=== PATIENT | female | born 1985 ===

== ENCOUNTER 2017-02-07 03:17 | Emergency (ER) | payer OTHER ==
[2017-02-07 03:28] VITALS: RESP 18; TEMP 97.9; O2SAT 100
[2017-02-07 03:29] VITALS: BMI 26.9
[2017-02-07] MEDS ORDERED: Sodium Chloride 0.9% 1,000 ML IV STA (04:05)
--- NOTE | 2017-02-07 04:11 | ED PDOC ---
Arrival/HPI - General Historian: Patient <Artie Greenberg - Last Filed: 02/07/17 04:26> <Salinas Bass - Last Filed: 02/07/17 06:16> - General Chief Complaint: GI Problem Time Seen by Provider: 02/07/17 03:57 - History of Present Illness Narrative History of Present Illness (Text): 02/07/17 04:07 32 y/o female, nkda, c/o waterry diarrhea s/p taking the antidepressant viibryd for the 1st time and developed diarrhea. Pt. stated that she had multiple diarrhea tonight after taking the viibryd for the 1st time, no antibiotic taken or any traveling for the past 4 weeks, stated that she feels tired, no bodyache or night sweat, no dizziness, no numbness or tingling, no headache, no rash, no urinary symptoms, no neck stiffness, no other medical or psychological complaints. (Artie Greenberg) Past Medical History - Provider Review Nursing Documentation Reviewed: Yes - Infectious Disease Hx of Infectious Diseases: None - Tetanus Immunization Tetanus Immunization: Unknown - Past Medical History Past Medical History: No Previous - Cardiac Hx Cardiac Disorders: No Hx Pacemaker: No - Pulmonary Hx Respiratory Disorders: No - Neurological Hx Neurological Disorder: No Hx Paralysis: No - HEENT Hx HEENT Disorder: No - Renal Hx Renal Disorder: No - Endocrine/Metabolic Hx Systemic Lupus Erythematosus: Yes - Hematological/Oncological Hx Blood Disorders: No - Integumentary Hx Dermatological Disorder: No - Musculoskeletal/Rheumatological Hx Musculoskeletal Disorders: No Other/Comment: CHRONIC PAIN - Gastrointestinal Hx Gastrointestinal Disorders: Yes Hx Gastroesophageal Reflux: Yes Other/Comment: HIATAL HERNIA - Genitourinary/Gynecological Other/Comment: endometriosis - Psychiatric Hx Anxiety: Yes Hx Substance Use: No - Past Surgical History Past Surgical History: No Previous - Surgical History Other/Comment: Ovarian cyst removal. Laparoscopy for endometriosis - Anesthesia Hx Anesthesia: Yes Hx Anesthesia Reactions: No Hx Malignant Hyperthermia: No - Suicidal Assessment Feels Threatened In Home Enviroment: No <Artie Greenberg - Last Filed: 02/07/17 04:26> Family/Social History - Physician Review Nursing Documentation Reviewed: Yes Family/Social History: Unknown Family HX Smoking Status: Never Smoked Hx Alcohol Use: Yes (SOCIAL) Hx Substance Use: No Hx Substance Use Treatment: No <Artie Greenberg - Last Filed: 02/07/17 04:26> Allergies/Home Meds <Artie Greenberg - Last Filed: 02/07/17 04:26> <Salinas Bass - Last Filed: 02/07/17 06:16> Allergies/Adverse Reactions: Allergies No Known Allergies Allergy (Verified 01/01/17 13:34) Home Medications: Home Meds Medication Instructions Recorded Confirmed Hydroxychloroquine Sulfate 200 mg PO DAILY 12/26/16 01/01/17 [Plaquenil] traMADol [Ultram] 50 mg PO DAILY 12/26/16 01/01/17 Review of Systems - Review of Systems Constitutional: Fatigue. absent: Fevers Eyes: absent: Vision Changes ENT: absent: Hearing Changes Respiratory: absent: Cough Cardiovascular: absent: Chest Pain Gastrointestinal: Diarrhea. absent: Abdominal Pain, Nausea, Vomiting Musculoskeletal: absent: Arthralgias, Back Pain, Neck Pain, Joint Swelling, Myalgias Skin: absent: Rash, Pruritis, Skin Lesions, Laceration, Abscess, Ulcer <Artie Greenberg - Last Filed: 02/07/17 04:26> Physical Exam Vital Signs Reviewed: Yes Temperature: Afebrile Blood Pressure: Normal Pulse: Regular Respiratory Rate: Normal Appearance: Positive for: Well-Appearing, Non-Toxic, Uncomfortable Pain Distress: None Mental Status: Positive for: Alert and Oriented X 3 - Systems Exam Head: Present: Atraumatic, Normocephalic Pupils: Present: PERRL Extroacular Muscles: Present: EOMI Conjunctiva: Present: Normal Mouth: Present: Moist Mucous Membranes Neck: Present: Normal Range of Motion Respiratory/Chest: Present: Clear to Auscultation, Good Air Exchange. No: Respiratory Distress, Accessory Muscle Use Cardiovascular: Present: Regular Rate and Rhythm, Normal S1, S2. No: Murmurs Abdomen: Present: Normal Bowel Sounds. No: Tenderness, Distention, Peritoneal Signs, Rebound, Guarding Back: Present: Normal Inspection Upper Extremity: Present: Normal Inspection. No: Cyanosis, Edema Lower Extremity: Present: Normal Inspection. No: Edema Neurological: Present: GCS=15, CN II-XII Intact, Speech Normal Skin: Present: Warm, Dry, Normal Color. No: Rashes Psychiatric: Present: Alert, Oriented x 3, Normal Insight, Normal Concentration <Artie Greenberg - Last Filed: 02/07/17 04:26> Vital Signs Temp Pulse Resp BP Pulse Ox 02/07/17 03:27 97.9 F 69 18 114/74 100 Medical Decision Making <Artie Greenberg - Last Filed: 02/07/17 04:26> <Salinas Bass - Last Filed: 02/07/17 06:16> ED Course and Treatment: 02/07/17 04:12 -labs/rapid flu -IVF/reglan -observe and reassess 02/07/17 04:27 -Case sign out to the ER attending Dr. Bass to follow up with the labs and reassess the patient for the dispo plan. (Artie Greenberg) 02/07/17 06:16 On re-evaluation, the patient feels better and is in no acute distress. Tolerating PO. I have discussed the results and plan with the patient, who expresses understanding. Patient in agreement with plan to discharged home. Patient is stable for discharge. Patient was instructed to follow up with physician/clinic in 1-2 days or return if symptoms worsen or new concerning symptoms arise. (Salinas Bass) - Lab Interpretations Lab Results: 02/07/17 04:27 02/07/17 04:27 Lab Results 02/07/17 04:27: WBC 8.1, RBC 4.06, Hgb 13.1, Hct 37.5, MCV 92.4, MCH 32.3, MCHC 34.9, RDW 13.3, Plt Count 326, MPV 9.5, Gran % 64.9, Lymph % (Auto) 28.4, [place] % (Auto) 4.9, Eos % (Auto) 1.7, Baso % (Auto) 0.1, Gran # 5.24, Lymph # 2.3, [place] # 0.4, Eos # 0.1, Baso # 0.01, Sodium 139, Potassium 3.8, Chloride 107, Carbon Dioxide 23, Anion Gap 13, BUN 11, Creatinine 0.6, Est GFR ( Amer) > 60, Est GFR (Non-Af Amer) > 60, Random Glucose 128 H, Calcium 9.0, Total Bilirubin 0.4, AST 37, ALT 55, Alkaline Phosphatase 74, Total Protein 7.6, Albumin 3.7, Globulin 3.8, Albumin/Globulin Ratio 1.0 L, Lipase 78, Influenza Typ A,B (EIA) Negative for flu a/b - Medication Orders Current Medication Orders: Discontinued Medications Sodium Chloride (Sodium Chloride 0.9%) 1,000 mls @ 999 mls/hr IV .Q1H1M STA Stop: 02/07/17 05:05 Last Admin: 02/07/17 04:38 Dose: 999 MLS/HR eMAR Start Stop Document 02/07/17 04:38 MR (Rec: 02/07/17 04:38 MR [id number]) Intravenous Solution Start Date 02/07/17 Start Time 04:38 End Date 02/07/17 End time 05:38 Total Infusion Time 60 Metoclopramide HCl (Reglan) 10 mg IVP STAT STA Stop: 02/07/17 04:06 Last Admin: 02/07/17 04:37 Dose: 10 MG IVP Administration Document 02/07/17 04:37 MR (Rec: 02/07/17 04:37 MR [id number]) Charges for Administration # of IVP Administrations 1 - PA / SIGNAL WORKER / Resident Statement YARELIS has reviewed & agrees with the documentation as recorded. <Artie Greenberg - Last Filed: 02/07/17 04:26> - PA / SIGNAL WORKER / Resident Statement YARELIS has reviewed & agrees with the documentation as recorded. YARELIS has examined the patient and agrees with the treatment plan. <Salinas Bass - Last Filed: 02/07/17 06:16> Disposition/Present on Arrival - Present on Arrival Any Indicators Present on Arrival: No History of DVT/PE: No History of Uncontrolled Diabetes: No Urinary Catheter: No History of Decub. Ulcer: No History Surgical Site Infection Following: None - Disposition Disposition Time: 04:26 <Artie Greenberg - Last Filed: 02/07/17 04:26> - Present on Arrival Any Indicators Present on Arrival: No - Disposition Have Diagnosis and Disposition been Completed?: Yes Disposition Time: 06:09 Patient Plan: Discharge <Salinas Bass - Last Filed: 02/07/17 06:16> - Disposition Diagnosis: Diarrhea, Medication side effect Disposition: HOME/ ROUTINE Patient Problems: Current Active Problems Problem Status Diagnosed Diarrhea Acute Medication side effect Acute Condition: GOOD Additional Instructions: Stop viibyrd meds just prescribed/drink plenty of liquids/follow up with your doctor this week
[2017-02-07 04:43] LABS: ADD MANUAL DIFF? NO
[2017-02-07 04:58] LABS: BASO # 0.01 K/mm3 (0.0-2.0); BASO % 0.1 % (0.0-3.0); EOS # 0.1 (0.0-0.7); EOS % 1.7 % (1.5-5.0); GRAN # 5.24 (1.4-6.5); GRAN % 64.9 % (50.0-68.0); HEMATOCRIT 37.5 % (36.0-48.0); LYMPH # 2.3 (1.2-3.4); LYMPH % 28.4 % (22.0-35.0); MEAN CELL VOLUME 92.4 fL (80.0-105.0); MEAN CORPUSCULAR HEMOGLOBIN 32.3 pg (25.0-35.0); MEAN CORPUSCULAR HGB CONC 34.9 g/dl (31.0-37.0); MEAN PLATELET VOLUME 9.5 fl (7.0-11.0); MONO # 0.4 (0.1-0.6); MONO % 4.9 % (1.0-6.0); PLATELET COUNT 326 10^3/uL (120.0-450.0); RED CELL DISTRIBUTION WIDTH 13.3 % (11.5-14.5); WHITE BLOOD COUNT 8.1 10^3/ul (4.5-11.0)
[2017-02-07 05:22] LABS: ALKALINE PHOSPHATASE 74 U/L (38-133); ALT/SGPT 55 U/L (7-56); AST/SGOT 37 U/L (15-39); BILIRUBIN,TOTAL 0.4 mg/dL (0.2-1.3); BLOOD UREA NITROGEN 11 mg/dL (7-21); CARBON DIOXIDE 23 mmol/L (21-33); CHLORIDE 107 mmol/L (98-107); GFR AFRICAN-AMERICAN > 60; GLUCOSE,RANDOM 128 mg/dL (70-110); LIPASE 78 U/L (23-300); POTASSIUM 3.8 mmol/L (3.6-5.0); SODIUM 139 mmol/L (132-148); TOTAL PROTEIN 7.6 g/dL (5.8-8.3)
[2017-02-07 07:00] VITALS: BP 117/70; PULSE 70
== END 2017-02-07 06:19 | disposition home or self-care (01) ==
LOC: ED 03:17
DX: R19.7 Diarrhea, unspecified (principal); T50.995A Adverse effect of other drugs, medicaments and biological substances, initial encounter; Y92.89 Other specified places as the place of occurrence of the external cause
CPT/HCPCS: 80053; 83690; 85025; 87804; 96361; 96374; 99284; J2765; J7040

== ENCOUNTER 2017-04-25 23:09 | Emergency (ER) | payer OTHER ==
[2017-04-25 23:12] VITALS: BMI 25.4
[2017-04-25 23:21] VITALS: BP 127/85; PULSE 92; RESP 18; TEMP 98.1; O2SAT 100
--- NOTE | 2017-04-25 23:50 | ED PDOC ---
Arrival/HPI - General Historian: Patient - History of Present Illness Time/Duration: < week Symptom Onset: Gradual Symptom Course: Unchanged Context: Home - General Chief Complaint: ENT Problem Time Seen by Provider: 04/25/17 23:18 - History of Present Illness Narrative History of Present Illness (Text): 04/25/17 23:47 32 yo female with PMH of SLE and endometrosis presents to ED with sore throat. Per patient sore throat started on Saturday. She states that it is painful to swallow. She was not able to see her PMD ad decided to come to the ED. She also reports body aches and nasal congestion, she denies fevers, chills, sob, chest pain. Patient is currently not on any medication for SLE. PMD: Dr. Campbell ([facility]) Past Medical History - Provider Review Nursing Documentation Reviewed: Yes - Infectious Disease Hx of Infectious Diseases: None - Tetanus Immunization Tetanus Immunization: Unknown - Past Medical History Past Medical History: No Previous - Cardiac Hx Cardiac Disorders: No Hx Pacemaker: No - Pulmonary Hx Respiratory Disorders: No - Neurological Hx Neurological Disorder: No Hx Paralysis: No - HEENT Hx HEENT Disorder: No - Renal Hx Renal Disorder: No - Endocrine/Metabolic Hx Systemic Lupus Erythematosus: Yes - Hematological/Oncological Hx Blood Disorders: No - Integumentary Hx Dermatological Disorder: No - Musculoskeletal/Rheumatological Hx Musculoskeletal Disorders: No Other/Comment: CHRONIC PAIN - Gastrointestinal Hx Gastrointestinal Disorders: Yes Hx Gastroesophageal Reflux: Yes Other/Comment: HIATAL HERNIA - Genitourinary/Gynecological Other/Comment: endometriosis - Psychiatric Hx Anxiety: Yes Hx Substance Use: No - Past Surgical History Past Surgical History: No Previous - Surgical History Other/Comment: Ovarian cyst removal. Laparoscopy for endometriosis - Anesthesia Hx Anesthesia: Yes Hx Anesthesia Reactions: No Hx Malignant Hyperthermia: No - Suicidal Assessment Feels Threatened In Home Enviroment: No Family/Social History - Physician Review Nursing Documentation Reviewed: Yes Family/Social History: Hypertension (father) Smoking Status: Never Smoked Hx Alcohol Use: Yes (SOCIAL) Hx Substance Use: No Hx Substance Use Treatment: No Allergies/Home Meds Allergies/Adverse Reactions: Allergies No Known Allergies Allergy (Verified 01/01/17 13:34) Home Medications: Home Meds Medication Instructions Recorded Confirmed Hydroxychloroquine Sulfate 200 mg PO DAILY 12/26/16 01/01/17 [Plaquenil] traMADol [Ultram] 50 mg PO DAILY 12/26/16 01/01/17 Review of Systems - Review of Systems Constitutional: Fatigue. absent: Fevers Eyes: Normal. absent: Vision Changes ENT: Sore Throat, Sinus Congestion Respiratory: Normal. absent: SOB, Cough, Wheezing Cardiovascular: Normal. absent: Chest Pain, Palpitations, Edema, Syncope Gastrointestinal: Normal. absent: Abdominal Pain, Constipation, Diarrhea, Nausea, Vomiting Genitourinary Female: Normal. absent: Dysuria, Frequency, Hematuria Musculoskeletal: Arthralgias, Myalgias Skin: Normal. absent: Rash, Pruritis, Laceration, Ulcer Neurological: Normal. absent: Headache, Dizziness Endocrine: Normal. absent: Polyuria, Polydipsia Hemo/Lymphatic: Normal. absent: Easy Bleeding, Easy Bruising Psychiatric: Normal Physical Exam - Systems Exam Head: Present: Atraumatic, Normocephalic Pupils: Present: PERRL. No: Non-Reactive, Pinpoint Extroacular Muscles: Present: EOMI Conjunctiva: Present: Normal Ears: Present: Normal, NORMAL TM. No: Erythema, TM Bulging Mouth: Present: Moist Mucous Membranes, Normal Tounge, Normal Teeth Pharnyx: Present: Normal, Other (no edema of mouth floor). No: ERYTHEMA, EXUDATE, TONSILS ENLARGED, Peritonsilar Swelling, Uvular Deviation, Muffled/ Hoarse Voice, Soft Palate/Uvular Edema Neck: Present: Normal Range of Motion Respiratory/Chest: Present: Clear to Auscultation, Good Air Exchange. No: Respiratory Distress, Accessory Muscle Use, Wheezes, Rales, Rhonchi, Tachypneic Cardiovascular: Present: Regular Rate and Rhythm, Normal S1, S2. No: Murmurs, Tachycardic, Bradycardic Abdomen: Present: Normal Bowel Sounds. No: Tenderness, Distention, Peritoneal Signs Back: Present: Normal Inspection Upper Extremity: Present: Normal Inspection. No: Cyanosis, Edema, Tenderness, Swelling Lower Extremity: Present: Normal Inspection. No: Edema, CALF TENDERNESS Neurological: Present: GCS=15, CN II-XII Intact, Speech Normal Skin: Present: Warm, Dry, Normal Color. No: Rashes, Diaphoretic Psychiatric: Present: Alert, Oriented x 3, Normal Insight, Normal Concentration Medical Decision Making ED Course and Treatment: 04/25/17 23:55 Impression: 32 yo female with PMH of SLE and endometrosis presents to ED with sore throat. differential diagnoses includes but not limited to: - pharyngitis Plan: - amoxicillin 04/26/17 00:18 -Patient given 1 dose of amoxicillin. She is to follow up with her PMD in 1-2 days. She is to return to ED if symptoms worsen. (Ela Aguero) Patient seen and examined with resident. Came up with treatment and disposition plan with resident. (Nato Clark) - Medication Orders Current Medication Orders: Discontinued Medications Amoxicillin (Amoxil 500 Mg Cap) 500 mg PO STAT STA PRN Reason: Protocol Stop: 04/25/17 23:46 Disposition/Present on Arrival - Present on Arrival Any Indicators Present on Arrival: No History of DVT/PE: No History of Uncontrolled Diabetes: No Urinary Catheter: No History of Decub. Ulcer: No History Surgical Site Infection Following: None - Disposition Have Diagnosis and Disposition been Completed?: Yes Disposition Time: 11:55 Patient Plan: Discharge - Disposition Diagnosis: Pharyngitis Disposition: HOME/ ROUTINE Condition: FAIR Discharge Instructions (ExitCare): Pharyngitis (ED) Additional Instructions: Misti Wilson, thank you for letting us take care of you today. Your provider was Dr. Aguero and Dr. Clark. You were treated for pharyngitis. The emergency medical care you received today was directed at your acute symptoms. If you were prescribed any medication, please fill it and take as directed. It may take several days for your symptoms to resolve. Return to the Emergency Department if your symptoms worsen, do not improve, or if you have any other problems. Please contact your doctor or call one of the physicians/clinics you have been referred to that are listed on the Patient Visit Information form that is included in your discharge packet. Bring any paperwork you were given at discharge with you along with any medications you are taking to your follow up visit. Our treatment cannot replace ongoing medical care by a primary care provider (PCP) outside of the emergency department. Thank you for allowing the [facility] team to be part of your care today. Prescriptions: Amoxicillin 500 mg PO BID #19 tablet Referrals: Augie Campbell MD [Staff Provider] - Follow up with primary
== END 2017-04-26 00:30 | disposition home or self-care (01) ==
LOC: ED 23:09
DX: J02.9 Acute pharyngitis, unspecified (principal)

== ENCOUNTER 2017-05-23 20:24 | Emergency (ER) | payer OTHER ==
[2017-05-23 20:34] VITALS: PULSE 76; RESP 18; TEMP 98; O2SAT 99; BMI 27.3
--- NOTE | 2017-05-23 20:47 | ED PDOC ---
Arrival/HPI - General Chief Complaint: Dizziness/Lightheaded Time Seen by Provider: 05/23/17 20:26 Historian: Patient - History of Present Illness Narrative History of Present Illness (Text): 05/23/17 20:44 A 32 year old female, whose past medical history includes Lupus and endometriosis, presents to the emergency department complaining of dizziness for the past 3 days. Patient states her symptom has been constant today with no relieving or exacerbating factors. Patient notes a headache but denies any fever , chills, nausea, vomiting, diarrhea, abdominal pain, chest pain, shortness of breath, cough, nasal congestion, numbness/weakness or any other complaints. Patient had a MRI yesterday which showed negative results. Time/Duration: Other (3 days) Symptom Course: Unchanged, Other (Constant since today) Quality: Other Context: Home Past Medical History - Provider Review Nursing Documentation Reviewed: Yes - Infectious Disease Hx of Infectious Diseases: None - Tetanus Immunization Tetanus Immunization: Unknown - Past Medical History Past Medical History: No Previous - Cardiac Hx Cardiac Disorders: No Hx Pacemaker: No - Pulmonary Hx Respiratory Disorders: No - Neurological Hx Neurological Disorder: No Hx Paralysis: No - HEENT Hx HEENT Disorder: No - Renal Hx Renal Disorder: No - Endocrine/Metabolic Hx Systemic Lupus Erythematosus: Yes - Hematological/Oncological Hx Blood Disorders: Yes Other/Comment: elevated levels of prolactin - Integumentary Hx Dermatological Disorder: No - Musculoskeletal/Rheumatological Hx Musculoskeletal Disorders: No Other/Comment: CHRONIC PAIN - Gastrointestinal Hx Gastrointestinal Disorders: Yes Hx Gastroesophageal Reflux: Yes Other/Comment: HIATAL HERNIA - Genitourinary/Gynecological Hx Genitourinary Disorders: Yes Other/Comment: endometriosis - Psychiatric Hx Anxiety: Yes Hx Substance Use: No - Past Surgical History Past Surgical History: No Previous - Surgical History Other/Comment: Ovarian cyst removal. Laparoscopy for endometriosis - Anesthesia Hx Anesthesia: Yes Hx Anesthesia Reactions: No Hx Malignant Hyperthermia: No - Suicidal Assessment Feels Threatened In Home Enviroment: No Family/Social History - Physician Review Nursing Documentation Reviewed: Yes Family/Social History: No Known Family HX Smoking Status: Never Smoked Hx Alcohol Use: Yes (SOCIAL) Hx Substance Use: No Hx Substance Use Treatment: No Allergies/Home Meds Allergies/Adverse Reactions: Allergies No Known Allergies Allergy (Verified 05/23/17 20:34) Home Medications: Home Meds Medication Instructions Recorded Confirmed Cholecalciferol [Vitamin D 1000 IU] 1 tab PO QWK 05/23/17 05/23/17 Cyanocobalamin [Vitamin B12 1000 1 unit SC ONCE 05/23/17 05/23/17 mcg/ml Inj] Hydroxychloroquine Sulfate 1 tab PO DAILY 05/23/17 05/23/17 [Plaquenil] Review of Systems - Physician Review All systems were reviewed & negative as marked: Yes - Review of Systems Constitutional: absent: Fevers, Night Sweats ENT: absent: Sinus Congestion Respiratory: absent: SOB, Cough Cardiovascular: absent: Chest Pain Gastrointestinal: absent: Abdominal Pain, Diarrhea, Nausea, Vomiting Neurological: Headache, Dizziness. absent: Focal Weakness Physical Exam Vital Signs Reviewed: Yes Vital Signs Temp Pulse Resp BP Pulse Ox 05/23/17 20:54 76 136/88 05/23/17 20:33 98.0 F 76 18 146/100 H 99 Temperature: Afebrile Blood Pressure: Hypertensive Pulse: Regular Respiratory Rate: Normal Appearance: Positive for: Well-Appearing, Non-Toxic, Comfortable Pain Distress: None Mental Status: Positive for: Alert and Oriented X 3 - Systems Exam Head: Present: Atraumatic, Normocephalic Pupils: Present: PERRL Extroacular Muscles: Present: EOMI Conjunctiva: Present: Normal Ears: Present: Normal, NORMAL TM Mouth: Present: Moist Mucous Membranes Pharnyx: Present: Normal, ERYTHEMA Neck: Present: Normal Range of Motion Respiratory/Chest: Present: Clear to Auscultation, Good Air Exchange. No: Respiratory Distress, Accessory Muscle Use Cardiovascular: Present: Regular Rate and Rhythm, Normal S1, S2. No: Murmurs Abdomen: Present: Normal Bowel Sounds. No: Tenderness, Distention, Peritoneal Signs Back: Present: Normal Inspection Upper Extremity: Present: Normal Inspection, NORMAL PULSES. No: Cyanosis, Edema Lower Extremity: Present: Normal Inspection, NORMAL PULSES. No: Edema, CALF TENDERNESS Neurological: Present: GCS=15, CN II-XII Intact, Speech Normal, Motor Func Grossly Intact, Normal Sensory Function, Normal Cerebellar Funct, Gait Normal, Normal 2Pt Descrimination Skin: Present: Warm, Dry, Normal Color. No: Rashes Psychiatric: Present: Alert, Oriented x 3, Normal Insight, Normal Concentration Medical Decision Making ED Course and Treatment: 05/23/17 20:44 Impression: A 32 year old female with dizziness and a headache Differential Diagnosis included but are not limited to: Benign positional vertigo vs. Arrhythmia vs. Anemia Plan: -- EKG -- Labs -- Meclizine -- Reassess and disposition Progress Notes: 05/23/17 21:42 EKG shows NSR at [address]-segment elevations, normal intervals, normal intervals. Interpreted by me. 05/23/17 22:16 Accession No. : [id number] Patient Name / ID : CHRIS CALI / [id number] Exam Date : 05/22/2017 08:05:53 ( Approved ) Study Comment : Sex / Age : F / 32Y Creator : Paulino Weaver MD PROCEDURE: MRI BRAIN AND PITUITARY WITH AND WITHOUT CONTRAST IMPRESSION: Unremarkable pre and post MRI of the pituitary gland. No adenoma seen. Patient feels better. Orthostatics normal. Neuro exam normal. Walking without ataxia. MRI reviewed from yesterday and normal. She will f/u with Dr. Campbell in 1 -2days. - Lab Interpretations Lab Results: 05/23/17 21:23 05/23/17 21:23 Lab Results 05/23/17 21:23: Sodium 139, Potassium 3.8, Chloride 103, Carbon Dioxide 25, Anion Gap 15, BUN 14, Creatinine 0.6, Est GFR ( Amer) > 60, Est GFR (Non- Af Amer) > 60, Random Glucose 98, Calcium 9.6, Magnesium 2.2 05/23/17 21:23: WBC 8.5 D, RBC 4.25, Hgb 14.2, Hct 38.7, MCV 91.1, MCH 33.4, MCHC 36.7, RDW 13.1, Plt Count 322, MPV 9.3, Gran % 57.0, Lymph % (Auto) 34.2, [place] % (Auto) 6.7 H, Eos % (Auto) 1.9, Baso % (Auto) 0.2, Gran # 4.83, Lymph # 2.9, [place] # 0.6, Eos # 0.2, Baso # 0.02 I have reviewed the lab results: Yes Interpretation: All labs normal - Medication Orders Current Medication Orders: Discontinued Medications Meclizine HCl (Antivert) 25 mg PO STAT STA Stop: 05/23/17 20:49 Last Admin: 05/23/17 21:14 Dose: 25 mg - Scribe Statement The provider has reviewed the documentation as recorded by the Camila Juares Provider Alexandriaibe Attestation: All medical record entries made by the Scribe were at my direction and personally dictated by me. I have reviewed the chart and agree that the record accurately reflects my personal performance of the history, physical exam, medical decision making, and the department course for this patient. I have also personally directed, reviewed, and agree with the discharge instructions and disposition. Disposition/Present on Arrival - Present on Arrival Any Indicators Present on Arrival: No History of DVT/PE: No History of Uncontrolled Diabetes: No Urinary Catheter: No History of Decub. Ulcer: No History Surgical Site Infection Following: None - Disposition Have Diagnosis and Disposition been Completed?: Yes Diagnosis: Dizziness Disposition: HOME/ ROUTINE Disposition Time: 22:18 Patient Plan: Discharge, Observation Patient Problems: Current Active Problems Problem Status Onset Dizziness Acute Condition: IMPROVED Discharge Instructions (ExitCare): Dizziness (ED) Additional Instructions: Ms Wilson, thank you for letting us take care of you today. Your provider was Dr. Loyd. You were treated for Dizziness. The emergency medical care you received today was directed at your acute symptoms. If you were prescribed any medication, please fill it and take as directed. It may take several days for your symptoms to resolve. Return to the Emergency Department if your symptoms worsen, do not improve, or if you have any other problems. Please contact your doctor or call one of the physicians/clinics you have been referred to that are listed on the Patient Visit Information form that is included in your discharge packet. Bring any paperwork you were given at discharge with you along with any medications you are taking to your follow up visit. Our treatment cannot replace ongoing medical care by a primary care provider (PCP) outside of the emergency department. Thank you for allowing the [facility] team to be part of your care today. If you had an X-Ray or CT scan: A Radiologist will review the ED reading if any change in treatment is needed we will contact you. If you had a blood, urine, or wound culture: It will take several days for the results, if any change in treatment is needed we will contact you. If you had an STI test: It will take 48 hours for the results. Please call after 1 week if you have not heard back. Prescriptions: Meclizine [Meclizine*] 25 mg PO Q8 PRN #15 tab PRN Reason: Dizziness Referrals: Augie Campbell MD [Primary Care Provider] - Follow up with primary Forms: [employer] (Ecuadorean)
[2017-05-23 20:55] VITALS: BP 136/88
[2017-05-23 21:40] LABS: BLOOD UREA NITROGEN 14 mg/dL (7-21); CALCIUM 9.6 mg/dL (8.4-10.5); GFR AFRICAN-AMERICAN > 60; GFR NON-AFRICAN AMERICAN > 60; MAGNESIUM 2.2 mg/dL (1.7-2.2)
[2017-05-23 21:43] LABS: BASO # 0.02 K/mm3 (0.0-2.0); BASO % 0.2 % (0.0-3.0); EOS # 0.2 (0.0-0.7); EOS % 1.9 % (1.5-5.0); GRAN # 4.83 (1.4-6.5); HEMOGLOBIN 14.2 gm/dL (12.0-16.0); LYMPH # 2.9 (1.2-3.4); LYMPH % 34.2 % (22.0-35.0); MEAN CELL VOLUME 91.1 fL (80.0-105.0); MEAN CORPUSCULAR HEMOGLOBIN 33.4 pg (25.0-35.0); MEAN CORPUSCULAR HGB CONC 36.7 g/dl (31.0-37.0); MEAN PLATELET VOLUME 9.3 fl (7.0-11.0); MONO # 0.6 (0.1-0.6); MONO % 6.7 % (1.0-6.0); PLATELET COUNT 322 10^3/uL (120.0-450.0); RBC 4.25 10^6/uL (3.5-6.1); RED CELL DISTRIBUTION WIDTH 13.1 % (11.5-14.5); WHITE BLOOD COUNT 8.5 10^3/ul (4.5-11.0)
--- NOTE | 2017-05-24 16:15 | CARD ---
APPROVED REPORT EKG Measurement Heart [id number] <Conclusion> Normal sinus rhythm Normal ECG
== END 2017-05-23 22:21 | disposition home or self-care (01) ==
LOC: ED 20:24
DX: R42 Dizziness and giddiness (principal)

== ENCOUNTER 2017-07-24 13:03 | Emergency (ER) | payer OTHER ==
[2017-07-24 13:04] VITALS: BMI 27.3
[2017-07-24 13:16] VITALS: BP 119/77; PULSE 80; RESP 16; TEMP 98.5; O2SAT 98
--- NOTE | 2017-07-24 13:29 | ED PDOC ---
Arrival/HPI - General Historian: Patient - History of Present Illness Time/Duration: Prior to Arrival Context: Home - General Chief Complaint: Lower Extremity Problem/Injury Time Seen by Provider: 07/24/17 13:25 - History of Present Illness Narrative History of Present Illness (Text): 07/24/17 13:26 This 32 yo female presents to this ED c/o right 5th toe injury x [employer]. Patient stated while pushing a shopping cart a a local store, and large food can fell over her toe. Denies other complains. (Anny Ribeiro) Past Medical History - Provider Review Nursing Documentation Reviewed: Yes - Infectious Disease Hx of Infectious Diseases: None - Tetanus Immunization Tetanus Immunization: Unknown - Past Medical History Past Medical History: No Previous - Cardiac Hx Cardiac Disorders: No Hx Pacemaker: No - Pulmonary Hx Respiratory Disorders: No - Neurological Hx Neurological Disorder: No Hx Paralysis: No - HEENT Hx HEENT Disorder: No - Renal Hx Renal Disorder: No - Endocrine/Metabolic Hx Endocrine Disorders: Yes Hx Systemic Lupus Erythematosus: Yes - Hematological/Oncological Hx Blood Disorders: Yes Other/Comment: elevated levels of prolactin - Integumentary Hx Dermatological Disorder: No - Musculoskeletal/Rheumatological Hx Musculoskeletal Disorders: No Other/Comment: CHRONIC PAIN - Gastrointestinal Hx Gastrointestinal Disorders: Yes Hx Gastroesophageal Reflux: Yes Other/Comment: HIATAL HERNIA - Genitourinary/Gynecological Hx Genitourinary Disorders: Yes Other/Comment: endometriosis - Psychiatric Hx Anxiety: Yes Hx Substance Use: No - Past Surgical History Past Surgical History: No Previous - Surgical History Other/Comment: Ovarian cyst removal. Laparoscopy for endometriosis - Anesthesia Hx Anesthesia: Yes Hx Anesthesia Reactions: No Hx Malignant Hyperthermia: No - Suicidal Assessment Feels Threatened In Home Enviroment: No Family/Social History - Physician Review Nursing Documentation Reviewed: Yes Family/Social History: Other (non-contributory) Smoking Status: Never Smoked Hx Alcohol Use: Yes (SOCIAL) Frequency of alcohol use: Socially Hx Substance Use: No Hx Substance Use Treatment: No Allergies/Home Meds Allergies/Adverse Reactions: Allergies No Known Allergies Allergy (Verified 05/23/17 20:34) Home Medications: Home Meds Medication Instructions Recorded Confirmed l-Norgest/E.estradiol-E.estrad 1 tab PO DAILY 07/24/17 07/24/17 [Seasonique 0.15-0.03-0.01 Tab] Review of Systems - Physician Review All systems were reviewed & negative as marked: Yes - Review of Systems Constitutional: Normal. absent: Fatigue, Weight Change, Fevers Eyes: Normal ENT: Normal Respiratory: Normal. absent: SOB, Cough Cardiovascular: Normal. absent: Chest Pain, Palpitations Gastrointestinal: Normal. absent: Abdominal Pain, Nausea, Vomiting Genitourinary Female: Normal Musculoskeletal: Normal Skin: Normal. absent: Rash Neurological: Normal. absent: Headache, Dizziness, Focal Weakness Endocrine: Normal Hemo/Lymphatic: Normal Psychiatric: Normal Physical Exam Temperature: Afebrile Blood Pressure: Normal Pulse: Regular Respiratory Rate: Normal Appearance: Positive for: Well-Appearing, Non-Toxic, Comfortable Pain Distress: None Mental Status: Positive for: Alert and Oriented X 3 - Systems Exam Head: Present: Atraumatic, Normocephalic Pupils: Present: PERRL Extroacular Muscles: Present: EOMI Conjunctiva: Present: Normal Mouth: Present: Moist Mucous Membranes Neck: Present: Normal Range of Motion Back: Present: Normal Inspection Upper Extremity: Present: Normal Inspection, Normal ROM, NORMAL PULSES, Neurovascularly Intact, Capillary Refill < 2s. No: Cyanosis, Edema Lower Extremity: Present: Normal Inspection, NORMAL PULSES, Tenderness (mild tenderness over right 5th MPJ area, with trace ecchymosis changes), Neurovascularly Intact, Capillary Refill < 2 s. No: Edema, CALF TENDERNESS, Swelling, Erythema, Deformity, Temperature Abnormalties Neurological: Present: GCS=15, CN II-XII Intact, Speech Normal, Motor Func Grossly Intact, Normal Sensory Function, Normal Cerebellar Funct, Gait Normal, Memory Normal Skin: Present: Warm, Dry, Normal Color. No: Rashes Psychiatric: Present: Alert, Oriented x 3, Normal Insight, Normal Concentration Vital Signs Temp Pulse Resp BP Pulse Ox 07/24/17 13:13 98.5 F 80 16 119/77 98 Medical Decision Making Re-evaluation Time: 13:52 Reassessment Condition: Re-examined, Improved ED Course and Treatment: I was available for consultation during PA evaluation. The chart was reviewed by me, and I agree with disposition. The documented history was done by the physician network security consultant. The documented physical exam was done by the physician network security consultant. The documented procedures were done by the physician network security consultant. ( Nato Clark) 07/24/17 13:26 Patient refused pain medication as this time 07/24/17 13:52 Foot x-rays: No fracture or dislocation 07/24/17 13:52 Re-evaluation. Patient feels better. Discussed results and plan with patient who expresses understanding. All questions answered and there is agreement with the plan to discharge home with instructions. Patient stable for discharge. Return if symptoms persist or worsen Post Op shoe applied by packaging tech (RibeiroRiriulises P) - RAD Interpretation Radiology Orders: 07/24/17 13:25 FOOT RIGHT 5TH DIGIT (TOE) [RAD] Stat Disposition/Present on Arrival - Present on Arrival Any Indicators Present on Arrival: No History of DVT/PE: No History of Uncontrolled Diabetes: No Urinary Catheter: No History of Decub. Ulcer: No History Surgical Site Infection Following: None - Disposition Have Diagnosis and Disposition been Completed?: Yes Disposition Time: 13:53 Patient Plan: Discharge - Disposition Diagnosis: Foot contusion Disposition: HOME/ ROUTINE Condition: GOOD Discharge Instructions (ExitCare): Foot Contusion (ED) Additional Instructions: over the counter Motrin for pain as needed with food. medication as instructed. Return to emergency if symptoms worsen. Referrals: Augie Campbell MD [Primary Care Provider] - Follow up with primary Forms: [facility] (Norwegian), WORK NOTE
--- NOTE | 2017-07-24 16:11 | RAD ---
PROCEDURE: HISTORY: toe pain COMPARISON: None TECHNIQUE: Three the FINDINGS: 3 mm os tibial externum borders posteromedial navicular bone -developmental variant. . No fracture or dislocation. Unremarkable joints. Minimal soft tissue swelling near base of 5th metatarsal. IMPRESSION: No fracture seen
== END 2017-07-24 14:02 | disposition home or self-care (01) ==
LOC: ED 13:03
DX: S90.121A Contusion of right lesser toe(s) without damage to nail, initial encounter (principal); W20.8XXA Other cause of strike by thrown, projected or falling object, initial encounter; M32.9 Systemic lupus erythematosus, unspecified

== ENCOUNTER 2017-12-05 05:54 | Emergency (ER) | payer BC, OTHER ==
[2017-12-05 05:55] VITALS: BMI 27.3
[2017-12-05] MEDS ORDERED: Morphine 4 mg/ml ISec IVP STA (06:24)
--- NOTE | 2017-12-05 06:24 | ED PDOC ---
Arrival/HPI <Brandan Trujillo - Last Filed: 12/05/17 10:19> - General Historian: Patient - History of Present Illness Symptom Onset: Gradual Symptom Course: Unchanged Activities at Onset: Light Context: Work <John Xie - Last Filed: 12/06/17 17:36> - General Chief Complaint: Abdominal Pain Time Seen by Provider: 12/05/17 06:08 - History of Present Illness Narrative History of Present Illness (Text): 12/05/17 06:23 Misti Wilson is a 32 year old female, whose past medical history includes endometriosis, who presents to the emergency department complaining of abdominal pain. Patient states she has been experiencing worsening RLQ pain radiating to her mid abdomen and back for the past few hours. Patient notes she has experienced similar symptoms in the past, but notes pain is worse in severity. Patient denies any fevers, chills, chest pain, shortness of breath, nausea, vomiting, diarrhea, neck pain, headache, dizziness, or any other complaint. (John Xie) Past Medical History - Provider Review Nursing Documentation Reviewed: Yes - Infectious Disease Hx of Infectious Diseases: None - Tetanus Immunization Tetanus Immunization: Unknown - Past Medical History Past Medical History: No Previous - Cardiac Hx Cardiac Disorders: No Hx Pacemaker: No - Pulmonary Hx Respiratory Disorders: No - Neurological Hx Neurological Disorder: No Hx Paralysis: No - HEENT Hx HEENT Disorder: No - Renal Hx Renal Disorder: No - Endocrine/Metabolic Hx Endocrine Disorders: Yes Hx Systemic Lupus Erythematosus: Yes - Hematological/Oncological Hx Blood Transfusions: No - Integumentary Hx Dermatological Disorder: No - Musculoskeletal/Rheumatological Hx Musculoskeletal Disorders: No - Gastrointestinal Hx Gastrointestinal Disorders: Yes Hx Gastroesophageal Reflux: Yes Other/Comment: HIATAL HERNIA - Genitourinary/Gynecological Hx Genitourinary Disorders: Yes Other/Comment: endometriosis - Psychiatric Hx Psychophysiologic Disorder: No Hx Emotional Abuse: No Hx Physical Abuse: No Hx Substance Use: No - Past Surgical History Past Surgical History: No Previous - Surgical History Other/Comment: abd cyst/laproscopy - Anesthesia Hx Anesthesia Reactions: No - Suicidal Assessment Feels Threatened In Home Enviroment: No <John Xie - Last Filed: 12/06/17 17:36> Family/Social History - Physician Review Nursing Documentation Reviewed: Yes Family/Social History: Unknown Family HX Smoking Status: Never Smoked Hx Alcohol Use: Yes (SOCIAL) Frequency of alcohol use: Socially Hx Substance Use: No Hx Substance Use Treatment: No <John Xie - Last Filed: 12/06/17 17:36> Allergies/Home Meds <Brandan Trujillo - Last Filed: 12/05/17 10:19> <John Xie - Last Filed: 12/06/17 17:36> Allergies/Adverse Reactions: Allergies No Known Allergies Allergy (Verified 12/05/17 06:14) Home Medications: Home Meds Medication Instructions Recorded Confirmed No Known Home Med 12/05/17 12/05/17 Review of Systems - Physician Review All systems were reviewed & negative as marked: Yes - Review of Systems Constitutional: Normal. absent: Fevers Eyes: Normal ENT: Normal Respiratory: Normal. absent: SOB, Cough Cardiovascular: Normal. absent: Chest Pain Gastrointestinal: Abdominal Pain. absent: Diarrhea, Nausea, Vomiting Genitourinary Female: Normal. absent: Dysuria, Frequency, Hematuria, Urine Output Changes Musculoskeletal: Normal. absent: Back Pain, Neck Pain Skin: Normal. absent: Rash Neurological: Normal. absent: Headache, Dizziness Endocrine: Normal Hemo/Lymphatic: Normal Psychiatric: Normal <John Xie - Last Filed: 12/06/17 17:36> Physical Exam Vital Signs Reviewed: Yes Temperature: Afebrile Blood Pressure: Normal Pulse: Regular Respiratory Rate: Normal Appearance: Positive for: Well-Appearing, Non-Toxic, Comfortable Pain Distress: None Mental Status: Positive for: Alert and Oriented X 3 - Systems Exam Head: Present: Atraumatic, Normocephalic Pupils: Present: PERRL Extroacular Muscles: Present: EOMI Conjunctiva: Present: Normal Mouth: Present: Moist Mucous Membranes Neck: Present: Normal Range of Motion Respiratory/Chest: Present: Clear to Auscultation, Good Air Exchange. No: Respiratory Distress, Accessory Muscle Use Cardiovascular: Present: Regular Rate and Rhythm, Normal S1, S2. No: Murmurs Abdomen: Present: Tenderness (Mild RLQ tenderness), Normal Bowel Sounds. No: Distention, Peritoneal Signs Back: Present: Normal Inspection Upper Extremity: Present: Normal Inspection. No: Cyanosis, Edema Lower Extremity: Present: Normal Inspection. No: Edema Neurological: Present: GCS=15, CN II-XII Intact, Speech Normal Skin: Present: Warm, Dry, Normal Color. No: Rashes Psychiatric: Present: Alert, Oriented x 3, Normal Insight, Normal Concentration <John Xie - Last Filed: 12/06/17 17:36> Vital Signs Temp Pulse Resp BP Pulse Ox 12/05/17 09:58 97.7 F 76 18 121/72 98 12/05/17 07:45 82 18 126/81 98 12/05/17 07:40 88 18 126/81 98 12/05/17 06:07 97.3 F L 94 H 20 134/85 97 Medical Decision Making <Brandan Trujillo - Last Filed: 12/05/17 10:19> <John Xie - Last Filed: 12/06/17 17:36> ED Course and Treatment: 12/05/17 10:08 labs stable. No evidence of infection. Pain had improved but is now returning.Patient requests no further testing as this is typical of her endometriosis. She is actively under her medical payment poster's care and will f/u today in office. She had been told no further pain RX due to issues with liver. (Brandan Trujillo) 12/05/17 06:23 Impression: 32 year old female complaining of worsening RLQ pain radiating to mid abdomen and back for past few hours. Plan: -- Labs, lipase -- UA -- IV fluids -- Morphine -- Reassess and disposition Progress Notes: case endorsed dr cohen labs and re eval and dispo 12/06/17 17:35 (John Xie) - Lab Interpretations Lab Results: 12/05/17 06:52 12/05/17 06:52 Lab Results 12/05/17 06:52: Urine Color Yellow, Urine Appearance Sl cloudy, Urine pH 8.0, Ur Specific [place] 1.020, Urine Protein Trace H, Urine Glucose (UA) Negative, Urine Ketones Negative, Urine Blood Negative, Urine Nitrate Negative, Urine Bilirubin Negative, Urine Urobilinogen 0.2, Ur Leukocyte Esterase Negative, Urine RBC 0 - 2, Urine WBC 0 - 2, Ur Epithelial Cells 6 - 8, Urine Bacteria Trace 12/05/17 06:52: Sodium 139, Potassium 3.9, Chloride 105, Carbon Dioxide 24, Anion Gap 14, BUN 12, Creatinine 0.6 L, Est GFR ( Amer) > 60, Est GFR ( Non-Af Amer) > 60, Random Glucose 114 H, Calcium 9.8, Total Bilirubin 0.7, AST 436 H D, ALT 665 H, Alkaline Phosphatase 127 H D, Total Protein 7.8, Albumin 4.0 , Globulin 3.7, Albumin/Globulin Ratio 1.1, Lipase 94 12/05/17 06:52: WBC 11.6 H D, RBC 4.13, Hgb 13.2, Hct 38.5, MCV 93.2, MCH 32.0, MCHC 34.3, RDW 13.1, Plt Count 309, MPV 10.0, Gran % 66.7, Lymph % (Auto) 24.1, [place] % (Auto) 7.2 H, Eos % (Auto) 1.6, Baso % (Auto) 0.4, Gran # 7.75 H, Lymph # (Auto) 2.8, [place] # (Auto) 0.8 H, Eos # (Auto) 0.2, Baso # (Auto) 0.05 - Medication Orders Current Medication Orders: Discontinued Medications Sodium Chloride (Sodium Chloride 0.9%) 1,000 mls @ 80 mls/hr IV .[id number] LA NENA Last Admin: 12/05/17 06:56 Dose: 80 mls/hr eMAR Start Stop Document 12/05/17 06:56 AD (Rec: 12/05/17 06:57 AD [id number]) Intravenous Solution Start Date 12/05/17 Start Time 06:57 Morphine Sulfate (Morphine) 2 mg IVP STAT STA Stop: 12/05/17 06:25 Last Admin: 12/05/17 07:07 Dose: 2 mg [employer] [facility] Pain Assessment Document 12/05/17 07:07 AD (Rec: 12/05/17 07:08 AD [id number]) Pain Reassessment Is this a pain reassessment? No Presence of Pain Presence of Pain Yes Location Left, Right or Bilateral Right Pain Location Body Site Abdomen Description Intensity of Pain at present 10 Pain Behavior Facial Grimacing IVP Administration Document 12/05/17 07:07 AD (Rec: 12/05/17 07:08 AD [id number]) Charges for Administration # of IVP Administrations 1 Re-Assess: [facility] [employer] [facility] Pain Assessment Document 12/05/17 08:07 ELECTRONICS MECHANIC (Rec: 12/05/17 10:31 ELECTRONICS MECHANIC [id number]) Pain Reassessment Is this a pain reassessment? Yes Sleep Is patient sleeping during reassessment? No Presence of Pain Presence of Pain Yes Ondansetron HCl (Zofran Inj) 4 mg IVP STAT STA Stop: 12/05/17 06:58 Last Admin: 12/05/17 07:08 Dose: 4 mg IVP Administration Document 12/05/17 07:08 AD (Rec: 12/05/17 07:08 AD [id number]) Charges for Administration # of IVP Administrations 1 Tramadol/Acetaminophen (Ultracet 37.5/325 Mg) 2 tab PO STAT STA Stop: 12/05/17 10:06 Last Admin: 12/05/17 10:22 Dose: 2 tab MAR Pain Assessment Document 12/05/17 10:22 LA (Rec: 12/05/17 10:22 LA [id number]) Pain Reassessment Is this a pain reassessment? No Sleep Is patient sleeping during reassessment? No Presence of Pain Presence of Pain Yes Pain Scale Used Pain Scale Used Numeric Location Pain Location Body Site Groin <Brandan Trujillo - Last Filed: 12/05/17 10:19> - Scribe Statement The provider has reviewed the documentation as recorded by the Scribe <John Xie - Last Filed: 12/06/17 17:36> - Scribe Statement Nilda García Provider Scribe Attestation: All medical record entries made by the Scribe were at my direction and personally dictated by me. I have reviewed the chart and agree that the record accurately reflects my personal performance of the history, physical exam, medical decision making, and the department course for this patient. I have also personally directed, reviewed, and agree with the discharge instructions and disposition. (John Xie) Disposition/Present on Arrival - Present on Arrival Any Indicators Present on Arrival: No - Disposition Have Diagnosis and Disposition been Completed?: Yes Disposition Time: 10:15 Patient Plan: Discharge <Brandan Trujillo - Last Filed: 12/05/17 10:19> - Present on Arrival Any Indicators Present on Arrival: No History of DVT/PE: No History of Uncontrolled Diabetes: No Urinary Catheter: No History of Decub. Ulcer: No History Surgical Site Infection Following: None - Disposition Have Diagnosis and Disposition been Completed?: Yes <John Xie - Last Filed: 12/06/17 17:36> - Disposition Diagnosis: Abdominal pain, Endometriosis Disposition: HOME/ ROUTINE Condition: STABLE Additional Instructions: see Dr Campbell today, in office for further management and advice. Forms: WORK NOTE, SCHOOL NOTE
[2017-12-05] MEDS ORDERED: Sodium Chloride 0.9% 1,000 ML IV SCH (06:30)
[2017-12-05 07:10] LABS: BASO # 0.05 K/mm3 (0.0-2.0); BASO % 0.4 % (0.0-3.0); EOS # 0.2 (0.0-0.7); EOS % 1.6 % (1.5-5.0); GRAN # 7.75 (1.4-6.5); GRAN % 66.7 % (50.0-68.0); HEMOGLOBIN 13.2 g/dL (12.0-16.0); LYMPH # 2.8 (1.2-3.4); LYMPH % 24.1 % (22.0-35.0); MEAN CELL VOLUME 93.2 fl (80.0-105.0); MEAN CORPUSCULAR HGB CONC 34.3 g/dl (31.0-37.0); MONO # 0.8 (0.1-0.6); MONO % 7.2 % (1.0-6.0); RBC 4.13 10^6/uL (3.5-6.1); RED CELL DISTRIBUTION WIDTH 13.1 % (11.5-14.5); WHITE BLOOD COUNT 11.6 10^3/ul (4.5-11.0)
[2017-12-05 07:15] LABS: URINE BILIRUBIN NEGATIVE (NEGATIVE); URINE BLOOD NEGATIVE (NEGATIVE); URINE GLUCOSE (UA) NEGATIVE (NEGATIVE); URINE LEUKOCYTE ESTERASE NEGATIVE Leu/uL (NEGATIVE); URINE NITRATE NEGATIVE (NEGATIVE); URINE PROTEIN TRACE mg/dL (<30 mg/dL); URINE UROBILINOGEN 0.2 E.U./dL (<1 E.U./dL)
[2017-12-05 07:17] LABS: URINE APPEARANCE SL CLOUDY (CLEAR); URINE COLOR YELLOW (YELLOW)
[2017-12-05 07:34] LABS: URINE BACTERIA TRACE (NEG); URINE RBC 0 - 2 /hpf (0-2); URINE WBC 0 - 2 /hpf (0-6)
[2017-12-05 07:52] LABS: ALB/GLOB RATIO 1.1 (1.1-1.8); ALT/SGPT 665 U/L (7-56); AST/SGOT 436 U/L (14-36); BLOOD UREA NITROGEN 12 mg/dL (7-21); CALCIUM 9.8 mg/dL (8.4-10.5); GFR AFRICAN-AMERICAN > 60; GFR NON-AFRICAN AMERICAN > 60; LIPASE 94 U/L (23-300)
[2017-12-05 08:17] VITALS: RESP 18; O2SAT 98
[2017-12-05 09:59] VITALS: BP 121/72; PULSE 76; TEMP 97.7
[2017-12-05] MEDS ORDERED: TraMADol/Apap 37.5/325 mg Tab PO STA (10:05)
== END 2017-12-05 10:42 | disposition home or self-care (01) ==
LOC: ED 05:54
DX: N80.9 Endometriosis, unspecified (principal); R10.31 Right lower quadrant pain; M32.9 Systemic lupus erythematosus, unspecified
CPT/HCPCS: 80053; 81001; 83690; 85025; 96374; 96375; 99284; J2270; J2405; J7040

== ENCOUNTER 2018-02-06 04:30 | Emergency (ER) | payer BC ==
[2018-02-06 04:31] VITALS: BMI 27.3
[2018-02-06] MEDS ORDERED: Sodium Chloride 0.9% 1,000 ML IV STA (04:56)
--- NOTE | 2018-02-06 04:57 | ED PDOC ---
Arrival/HPI - General Chief Complaint: Female Genitourinary Time Seen by Provider: 02/06/18 04:31 Historian: Patient - History of Present Illness Narrative History of Present Illness (Text): 02/06/18 04:57 Misti Wilson is a 32 year old female, whose past medical history includes endometriosis, who presents to the emergency department complaining of right flank pain for the past 2 days. Patient reports previous dysuria 2 weeks prior. Patient denies any recent trauma/injury, fever, chills, nausea, vomiting, neck pain, headache, dizziness, or any other complaints. Symptom Onset: Gradual Symptom Course: Unchanged Activities at Onset: Light Context: Home Past Medical History - Provider Review Nursing Documentation Reviewed: Yes - Infectious Disease Hx of Infectious Diseases: None - Tetanus Immunization Tetanus Immunization: Unknown - Past Medical History Past Medical History: No Previous - Cardiac Hx Cardiac Disorders: No Hx Pacemaker: No - Pulmonary Hx Respiratory Disorders: No - Neurological Hx Neurological Disorder: No Hx Paralysis: No - HEENT Hx HEENT Disorder: No - Renal Hx Renal Disorder: No - Endocrine/Metabolic Hx Endocrine Disorders: Yes Hx Systemic Lupus Erythematosus: Yes - Hematological/Oncological Hx Blood Transfusions: No - Integumentary Hx Dermatological Disorder: No - Musculoskeletal/Rheumatological Hx Musculoskeletal Disorders: No - Gastrointestinal Hx Gastrointestinal Disorders: Yes Hx Gastroesophageal Reflux: Yes Other/Comment: HIATAL HERNIA - Genitourinary/Gynecological Hx Genitourinary Disorders: Yes Other/Comment: endometriosis - Psychiatric Hx Psychophysiologic Disorder: No Hx Emotional Abuse: No Hx Physical Abuse: No Hx Substance Use: No - Past Surgical History Past Surgical History: No Previous - Surgical History Other/Comment: abd cyst/laproscopy - Anesthesia Hx Anesthesia Reactions: No - Suicidal Assessment Feels Threatened In Home Enviroment: No Family/Social History - Physician Review Nursing Documentation Reviewed: Yes Family/Social History: Unknown Family HX Smoking Status: Never Smoked Hx Alcohol Use: Yes (SOCIAL) Frequency of alcohol use: Socially Hx Substance Use: No Hx Substance Use Treatment: No Allergies/Home Meds Allergies/Adverse Reactions: Allergies No Known Allergies Allergy (Verified 02/06/18 04:36) Review of Systems - Physician Review All systems were reviewed & negative as marked: Yes - Review of Systems Constitutional: Normal. absent: Fevers Eyes: Normal ENT: Normal Respiratory: Normal. absent: SOB, Cough Cardiovascular: Normal. absent: Chest Pain Gastrointestinal: Normal. absent: Abdominal Pain, Diarrhea, Nausea, Vomiting Genitourinary Female: Dysuria. absent: Frequency, Hematuria, Urine Output Changes Musculoskeletal: Back Pain. absent: Neck Pain Skin: Normal. absent: Rash Neurological: Normal. absent: Headache, Dizziness Endocrine: Normal Hemo/Lymphatic: Normal Psychiatric: Normal Physical Exam Vital Signs Reviewed: Yes Vital Signs Temp Pulse Resp BP Pulse Ox 02/06/18 07:28 97.9 F 88 16 130/88 99 02/06/18 04:51 83 18 133/93 H 98 02/06/18 04:48 98.7 F 83 18 133/93 H 98 Temperature: Afebrile Blood Pressure: Normal Pulse: Regular Respiratory Rate: Normal Appearance: Positive for: Well-Appearing, Non-Toxic, Comfortable Pain Distress: None Mental Status: Positive for: Alert and Oriented X 3 - Systems Exam Head: Present: Atraumatic, Normocephalic Pupils: Present: PERRL Extroacular Muscles: Present: EOMI Conjunctiva: Present: Normal Mouth: Present: Moist Mucous Membranes Neck: Present: Normal Range of Motion Respiratory/Chest: Present: Clear to Auscultation, Good Air Exchange. No: Respiratory Distress, Accessory Muscle Use Cardiovascular: Present: Regular Rate and Rhythm, Normal S1, S2. No: Murmurs Abdomen: Present: Tenderness (Mild suprapubic tenderness). No: Distention, Peritoneal Signs Back: Present: Paraspinal Tenderness (Right flank tenderness) Upper Extremity: Present: Normal Inspection. No: Cyanosis, Edema Lower Extremity: Present: Normal Inspection. No: Edema Neurological: Present: GCS=15, CN II-XII Intact, Speech Normal Skin: Present: Warm, Dry, Normal Color. No: Rashes Psychiatric: Present: Alert, Oriented x 3, Normal Insight, Normal Concentration Medical Decision Making ED Course and Treatment: 02/06/18 04:57 Impression: 33 year old female complaining of right flank pain x 2 days with dysuria 2 weeks prior. Plan: -- CT Abdomen and Pelvis w/o contrast -- Labs, lipase -- Urinalysis -- IV fluids -- Toradol -- Reassess and disposition Progress Notes: 02/06/18 19:27 ct shows no e/o of renal stone, pyelo. ua neg. pt has no lower abd ttp, no adexal ttp. pt notified of ct results. no states she may have lifted something to cause pain. notified of ct findings advise outpt fu return precautions - Lab Interpretations Lab Results: 02/06/18 04:44 02/06/18 04:44 Lab Results 02/06/18 04:44: Sodium 139, Potassium 3.8, Chloride 106, Carbon Dioxide 25, Anion Gap 13, BUN 12, Creatinine 0.7, Est GFR ( Amer) > 60, Est GFR (Non- Af Amer) > 60, Random Glucose 126 H, Calcium 9.3, Total Bilirubin 0.2, AST 169 H D, ALT 240 H, Alkaline Phosphatase 77, Total Protein 7.4, Albumin 3.7, Globulin 3.7, Albumin/Globulin Ratio 1.0 L, Lipase 125 02/06/18 04:44: Urine Color Yellow, Urine Appearance Clear, Urine pH 6.0, Ur Specific [place] 1.025, Urine Protein Negative, Urine Glucose (UA) Negative, Urine Ketones Trace H, Urine Blood Negative, Urine Nitrate Negative, Urine Bilirubin Negative, Urine Urobilinogen 0.2, Ur Leukocyte Esterase Negative, Urine HCG, Qual Negative 02/06/18 04:44: PT 11.5, INR 1.00, APTT 24.6 L 02/06/18 04:44: WBC 11.9 H, RBC 3.98, Hgb 13.0, Hct 37.0, MCV 93.0, MCH 32.7, MCHC 35.1, RDW 12.6, Plt Count 309, MPV 9.7, Gran % 65.7, Lymph % (Auto) 26.6, [place] % (Auto) 5.1, Eos % (Auto) 2.4, Baso % (Auto) 0.2, Gran # 7.78 H, Lymph # ( Auto) 3.2, [place] # (Auto) 0.6, Eos # (Auto) 0.3, Baso # (Auto) 0.02 - RAD Interpretation Radiology Orders: 02/06/18 05:05 ABD & PELVIS W/O PO OR IV CONT [CT] Stat - Medication Orders Current Medication Orders: Discontinued Medications Sodium Chloride (Sodium Chloride 0.9%) 1,000 mls @ 1,000 mls/hr IV .Q1H STA Stop: 02/06/18 05:55 Last Admin: 02/06/18 05:19 Dose: 1,000 mls/hr eMAR Start Stop Document 02/06/18 05:19 SS (Rec: 02/06/18 05:[address] [id number]) Intravenous Solution Start Date 02/06/18 Start Time 05:19 End Date 02/06/18 End time 06:19 Total Infusion Time 60 Ketorolac Tromethamine (Toradol) 30 mg IVP STAT STA Stop: 02/06/18 04:57 Last Admin: 02/06/18 05:18 Dose: 30 mg MAR Pain Assessment Document 02/06/18 05:18 SS (Rec: 02/06/18 05:[address] [id number]) Pain Reassessment Is this a pain reassessment? No Sleep Is patient sleeping during reassessment? No Presence of Pain Presence of Pain Yes Pain Scale Used Pain Scale Used Numeric Location Left, Right or Bilateral Right Pain Location Body Site Back Description Description Pressure Intensity of Pain at present 6 IVP Administration Document 02/06/18 05:18 SS (Rec: 02/06/18 05:19 SS [facility] [id number]) Charges for Administration # of IVP Administrations 1 - Scribe Statement The provider has reviewed the documentation as recorded by the Camila García Provider Scribe Attestation: All medical record entries made by the Scribe were at my direction and personally dictated by me. I have reviewed the chart and agree that the record accurately reflects my personal performance of the history, physical exam, medical decision making, and the department course for this patient. I have also personally directed, reviewed, and agree with the discharge instructions and disposition. Disposition/Present on Arrival - Present on Arrival Any Indicators Present on Arrival: No History of DVT/PE: No History of Uncontrolled Diabetes: No Urinary Catheter: No History of Decub. Ulcer: No History Surgical Site Infection Following: None - Disposition Have Diagnosis and Disposition been Completed?: Yes Diagnosis: Back pain Disposition: HOME/ ROUTINE Disposition Time: 07:00 Condition: STABLE Discharge Instructions (ExitCare): Upper Back Pain Additional Instructions: please follow up with your doctor. please discuss the results of your ct scan with your dcotor and specialist. return to er with worsening symptoms or concerns Prescriptions: Naproxen 500 mg PO BID PRN #14 tab PRN Reason: Pain, Mild (1-3) Referrals: Kendra Kenny MD [Staff Provider] - Follow up with primary Forms: [employer] (Romanian)
[2018-02-06 05:32] LABS: BASO # 0.02 K/mm3 (0.0-2.0); BASO % 0.2 % (0.0-3.0); EOS # 0.3 (0.0-0.7); EOS % 2.4 % (1.5-5.0); GRAN # 7.78 (1.4-6.5); GRAN % 65.7 % (50.0-68.0); LYMPH # 3.2 (1.2-3.4); LYMPH % 26.6 % (22.0-35.0); MEAN CORPUSCULAR HEMOGLOBIN 32.7 pg (25.0-35.0); MEAN CORPUSCULAR HGB CONC 35.1 g/dl (31.0-37.0); MEAN PLATELET VOLUME 9.7 fl (7.0-11.0); MONO # 0.6 (0.1-0.6); MONO % 5.1 % (1.0-6.0); RBC 3.98 10^6/uL (3.5-6.1); RED CELL DISTRIBUTION WIDTH 12.6 % (11.5-14.5); WHITE BLOOD COUNT 11.9 10^3/ul (4.5-11.0)
[2018-02-06 05:38] LABS: URINE BILIRUBIN NEGATIVE (NEGATIVE); URINE BLOOD NEGATIVE (NEGATIVE); URINE GLUCOSE (UA) NEGATIVE (NEGATIVE); URINE LEUKOCYTE ESTERASE NEGATIVE Leu/uL (NEGATIVE); URINE PROTEIN NEGATIVE mg/dL (<30 mg/dL); URINE UROBILINOGEN 0.2 E.U./dL (<1 E.U./dL)
[2018-02-06 05:39] LABS: URINE APPEARANCE CLEAR (CLEAR); URINE COLOR YELLOW (YELLOW)
[2018-02-06 05:40] LABS: HCG,QUALITATIVE URINE NEGATIVE (NEGATIVE)
[2018-02-06 05:45] LABS: ALBUMIN 3.7 g/dL (3.0-4.8); ALT/SGPT 240 U/L (7-56); AST/SGOT 169 U/L (14-36); BLOOD UREA NITROGEN 12 mg/dL (7-21); CALCIUM 9.3 mg/dL (8.4-10.5); GFR AFRICAN-AMERICAN > 60; GFR NON-AFRICAN AMERICAN > 60; LIPASE 125 U/L (23-300)
[2018-02-06 05:54] LABS: PROTHROMBIN TIME 11.5 SECONDS (9.4-12.5)
[2018-02-06 05:55] LABS: PARTIAL THROMBOPLASTIN TIME 24.6 Seconds (25.1-36.5)
--- NOTE | 2018-02-06 07:13 | CT ---
EXAM: CT Abdomen and Pelvis Without Intravenous Contrast EXAM DATE/TIME: 02/06/2018 5:05 AM CLINICAL HISTORY: 33 years old, female; Pain; Abdominal pain; Flank; Right; Prior surgery; Surgery date: 6+ months; Surgery type: HX abdomen cyst/ laparoscopy; Patient HX: HX uterine ca, HX bladder ca, HX hiatal hernia, HX systemic lupus erythematosus; Additional info: Right flank pain TECHNIQUE: Axial computed tomography images of the abdomen and pelvis without intravenous contrast. All CT scans at this facility use one or more dose reduction techniques, viz.: automated exposure control; ma/kV adjustment per patient size (including targeted exams where dose is matched to indication; i.e. head); or iterative reconstruction technique. Coronal and sagittal reformatted images were created and reviewed. COMPARISON: CT - ABD PELVIS W/O PO OR IV CONT 2016-11-17 10:55 FINDINGS: The liver, spleen, gallbladder and pancreas appear grossly normal on this non-contrast study. No perinephric stranding. No hydronephrosis. No obstructing calculi. The urinary bladder appears grossly normal. The bowel appears grossly normal. A normal appendix is identified series 3 images 127 through 134, coronal images 45 through 49. Rounded soft tissue fullness along the right aspect of the uterus. It may represent a combination of right ovary and unopacified bowel or possibly uterine fibroid. Evaluation is limited without oral or intravenous contrast. IMPRESSION: No definite acute findings however please see discussion above regarding right adnexa.
[2018-02-06 07:30] VITALS: BP 130/88; PULSE 88; RESP 16; TEMP 97.9; O2SAT 99
== END 2018-02-06 07:28 | disposition home or self-care (01) ==
LOC: ED 04:30
DX: M54.6 Pain in thoracic spine (principal); K21.9 Gastro-esophageal reflux disease without esophagitis; M32.9 Systemic lupus erythematosus, unspecified
CPT/HCPCS: 74176; 80053; 81003; 83690; 84703; 85025; 85610; 85730; 96361; 96374; 99283; J1885; J7040

== ENCOUNTER 2018-02-17 11:12 | Emergency (ER) | payer BC ==
[2018-02-17 11:12] VITALS: BMI 27.3
[2018-02-17 11:18] VITALS: RESP 18; TEMP 98.6
--- NOTE | 2018-02-17 12:02 | ED PDOC ---
Arrival/HPI - General Chief Complaint: Abdominal Pain Time Seen by Provider: 02/17/18 11:59 - History of Present Illness Narrative History of Present Illness (Text): 33 year old F c Past medical history endometriosis, anxiety, GERD, hiatal hernia p/w abdominal pain x 3 days. Pain is lower abdominal, radiating to R lumbar back, gradually worsening, constant, severe, throbbing, sharp in character. Took Percocet at home with little relief. Reports constipation, nausea, bloating. Denies fever, chills, lightheadedness, vomiting, dysuria or frequency. Scheduled to see endometriosis specialist March 06. Past Medical History - Infectious Disease Hx of Infectious Diseases: None - Tetanus Immunization Tetanus Immunization: Unknown - Past Medical History Past Medical History: No Previous - Cardiac Hx Cardiac Disorders: No Hx Pacemaker: No - Pulmonary Hx Respiratory Disorders: No - Neurological Hx Neurological Disorder: No Hx Paralysis: No - HEENT Hx HEENT Disorder: No - Renal Hx Renal Disorder: No - Endocrine/Metabolic Hx Endocrine Disorders: Yes Hx Systemic Lupus Erythematosus: Yes - Hematological/Oncological Hx Blood Transfusions: No - Integumentary Hx Dermatological Disorder: No - Musculoskeletal/Rheumatological Hx Musculoskeletal Disorders: No - Gastrointestinal Hx Gastrointestinal Disorders: Yes Hx Gastroesophageal Reflux: Yes Other/Comment: HIATAL HERNIA - Genitourinary/Gynecological Hx Genitourinary Disorders: Yes Other/Comment: endometriosis - Psychiatric Hx Psychophysiologic Disorder: No Hx Emotional Abuse: No Hx Physical Abuse: No Hx Substance Use: No - Past Surgical History Past Surgical History: No Previous - Surgical History Other/Comment: abd cyst/laproscopy - Anesthesia Hx Anesthesia Reactions: No - Suicidal Assessment Feels Threatened In Home Enviroment: No Family/Social History Family/Social History: No Known Family HX Smoking Status: Never Smoked Hx Alcohol Use: Yes (SOCIAL) Hx Substance Use: No Hx Substance Use Treatment: No Allergies/Home Meds Allergies/Adverse Reactions: Allergies No Known Allergies Allergy (Verified 02/06/18 04:36) Review of Systems - Physician Review All systems were reviewed & negative as marked: Yes - Review of Systems Constitutional: absent: Fevers Cardiovascular: absent: Chest Pain Physical Exam - Physical Exam Narrative Physical Exam (Text): Constitutional: No acute distress. Head: Normocephalic. Atraumatic. Eyes: PERRL. ENT: Moist mucous membranes. Neck: Supple. Cardiovascular: Regular rate. Chest: No tenderness. Respiratory: Clear to auscultation bilaterally. GI: Soft. Tenderness in lower abdomen, suprapubic area. Nondistended. No tenderness at McBurney's and negative Emanuel's sign. Back: R sided lower back tenderness. Musculoskeletal: No tenderness or swelling of extremities. Skin: No rash. Neurologic: Alert, no focal deficit. Vital Signs Temp Pulse Resp BP Pulse Ox 02/17/18 11:18 98.6 F 96 H 18 125/77 97 Medical Decision Making ED Course and Treatment: Differential includes endometriosis. Rule out UTI, complications such as ectopic , ovarian cyst or torsion. US Toradol for pain control IVF CBC CMP Lipase Urine Preg Patient had negative CT 10 days ago, informed patient of risk and benefit of CT today, she declined, comfortable with foregoing and return to Emergency department for worsening or changing pain. Labs unremarkable, LFTs baseline, pain improved on toradol. - Lab Interpretations Lab Results: 02/17/18 12:30 02/17/18 12:30 Lab Results 02/17/18 12:30: Sodium 141, Potassium 3.5 L, Chloride 105, Carbon Dioxide 22, Anion Gap 18, BUN 11, Creatinine 0.7, Est GFR ( Amer) > 60, Est GFR (Non- Af Amer) > 60, Random Glucose 174 H, Calcium 9.3, Total Bilirubin 0.4, AST 243 H D, ALT 379 H, Alkaline Phosphatase 62, Total Protein 7.6, Albumin 4.2, Globulin 3.4, Albumin/Globulin Ratio 1.2, Lipase 84 02/17/18 12:30: Urine Color Yellow, Urine Appearance Clear, Urine pH 6.0, Ur Specific [place] >= 1.030, Urine Protein Trace H, Urine Glucose (UA) Negative, Urine Ketones Negative, Urine Blood Negative, Urine Nitrate Negative, Urine Bilirubin Negative, Urine Urobilinogen 0.2, Ur Leukocyte Esterase Negative, Urine RBC 0 - 2, Urine WBC 1 - 3, Ur Epithelial Cells 6 - 8, Urine Bacteria Few , Urine Other Fiber, Urine HCG, Qual Negative 02/17/18 12:30: WBC 14.1 H, RBC 4.07, Hgb 13.3, Hct 37.5, MCV 92.1, MCH 32.7, MCHC 35.5, RDW 12.5, Plt Count 331, MPV 9.3, Gran % 78.2 H, Lymph % (Auto) 16.8 L, [place] % (Auto) 3.6, Eos % (Auto) 1.3 L, Baso % (Auto) 0.1, Gran # 11.01 H, Lymph # (Auto) 2.4, [place] # (Auto) 0.5, Eos # (Auto) 0.2, Baso # (Auto) 0.02 - RAD Interpretation Radiology Orders: 02/17/18 12:16 TRANSVAGINAL [US] Stat - Medication Orders Current Medication Orders: Discontinued Medications Sodium Chloride (Sodium Chloride 0.9%) 1,000 mls @ 999 mls/hr IV .Q1H1M STA Stop: 02/17/18 13:08 Last Admin: 02/17/18 12:30 Dose: 999 mls/hr eMAR Start Stop Document 02/17/18 12:30 HI (Rec: 02/17/18 12:41 HI [id number]) Intravenous Solution Start Date 02/17/18 Start Time 12:30 Ketorolac Tromethamine (Toradol) 30 mg IVP STAT STA Stop: 02/17/18 12:09 Last Admin: 02/17/18 12:30 Dose: 30 mg MAR Pain Assessment Document 02/17/18 12:30 HI (Rec: 02/17/18 12:41 HI [id number]) Pain Reassessment Is this a pain reassessment? No Sleep Is patient sleeping during reassessment? No Presence of Pain Presence of Pain Yes Location Upper or Lower Lower Pain Location Body Site Abdomen Knee Description Description Constant Intensity of Pain at present 8 Acceptable Level of Pain 2 Radiation Location legs Pain Behavior Facial Grimacing Alleviating Factors Medication IVP Administration Document 02/17/18 12:30 HI (Rec: 02/17/18 12:41 HI [id number]) Charges for Administration # of IVP Administrations 1 Ondansetron HCl (Zofran Inj) 8 mg IVP STAT STA Stop: 02/17/18 12:09 Last Admin: 02/17/18 12:30 Dose: 8 mg IVP Administration Document 02/17/18 12:30 HI (Rec: 02/17/18 12:40 HI [id number]) Charges for Administration # of IVP Administrations 1 Disposition/Present on Arrival - Present on Arrival Any Indicators Present on Arrival: No History of DVT/PE: No History of Uncontrolled Diabetes: No Urinary Catheter: No History of Decub. Ulcer: No History Surgical Site Infection Following: None - Disposition Have Diagnosis and Disposition been Completed?: Yes Diagnosis: Ovarian cyst Disposition: HOME/ ROUTINE Disposition Time: 13:23 Patient Plan: Discharge Condition: STABLE Discharge Instructions (ExitCare): Ovarian Cysts Prescriptions: Famotidine [Pepcid] 1 tab PO BID #14 tab Ibuprofen [Motrin] 600 mg PO Q6 #25 tab Ondansetron ODT [Zofran ODT] 4 mg PO Q8 #12 odt Referrals: Augie Campbell MD [Primary Care Provider] - Follow up with primary Forms: [employer] (Malay), WORK NOTE
[2018-02-17] MEDS ORDERED: Sodium Chloride 0.9% 1,000 ML IV STA (12:08)
[2018-02-17 12:42] LABS: BASO # 0.02 K/mm3 (0.0-2.0); BASO % 0.1 % (0.0-3.0); EOS # 0.2 (0.0-0.7); EOS % 1.3 % (1.5-5.0); GRAN # 11.01 (1.4-6.5); GRAN % 78.2 % (50.0-68.0); HEMOGLOBIN 13.3 g/dL (12.0-16.0); LYMPH # 2.4 (1.2-3.4); LYMPH % 16.8 % (22.0-35.0); MEAN CELL VOLUME 92.1 fl (80.0-105.0); MEAN CORPUSCULAR HEMOGLOBIN 32.7 pg (25.0-35.0); MEAN CORPUSCULAR HGB CONC 35.5 g/dl (31.0-37.0); MEAN PLATELET VOLUME 9.3 fl (7.0-11.0); MONO # 0.5 (0.1-0.6); MONO % 3.6 % (1.0-6.0); RBC 4.07 10^6/uL (3.5-6.1); RED CELL DISTRIBUTION WIDTH 12.5 % (11.5-14.5); URINE BILIRUBIN NEGATIVE (NEGATIVE); URINE BLOOD NEGATIVE (NEGATIVE); URINE GLUCOSE (UA) NEGATIVE (NEGATIVE); URINE LEUKOCYTE ESTERASE NEGATIVE Leu/uL (NEGATIVE); URINE PROTEIN TRACE mg/dL (<30 mg/dL); URINE UROBILINOGEN 0.2 E.U./dL (<1 E.U./dL); WHITE BLOOD COUNT 14.1 10^3/ul (4.5-11.0)
[2018-02-17 12:43] LABS: HCG,QUALITATIVE URINE NEGATIVE (NEGATIVE); URINE APPEARANCE CLEAR (CLEAR); URINE COLOR YELLOW (YELLOW)
[2018-02-17 12:51] LABS: URINE BACTERIA FEW (NEG); URINE RBC 0 - 2 /hpf (0-2)
[2018-02-17 12:54] LABS: ALB/GLOB RATIO 1.2 (1.1-1.8); ALBUMIN 4.2 g/dL (3.0-4.8); ALT/SGPT 379 U/L (7-56); AST/SGOT 243 U/L (14-36); BLOOD UREA NITROGEN 11 mg/dL (7-21); CALCIUM 9.3 mg/dL (8.4-10.5); GFR AFRICAN-AMERICAN > 60; GFR NON-AFRICAN AMERICAN > 60; LIPASE 84 U/L (23-300)
--- NOTE | 2018-02-17 13:12 | US ---
HISTORY: pelvic pain, r/o torsion/cyst. LMP November 2017. COMPARISON: 05/02/2016 pelvic ultrasound TECHNIQUE: Transvaginal only. Real -time technique with 2D, duplex and color Doppler FINDINGS: UTERUS: Measures 4 x 5 x 6.7 cm. Normal in size and appearance. No fibroid or other mass lesion seen. ENDOMETRIUM: Measures 7.1 mm in diameter. No ultrasound findings to suggest gestational sac, fluid, debris, mass or polyp or other pathologic process within the endometrium. CERVIX: No cervical abnormality identified. RIGHT OVARY: Measures 2 x 3.6 cm. No solid mass. Normal flow. 10 x 17 mm simple cyst LEFT OVARY: Measures 2.5 x 1.2 x 2.8 cm. No solid mass. Normal flow. FREE FLUID: No significant free fluid noted. OTHER FINDINGS: None. IMPRESSION: No acute findings related to/accounting for the clinical presentation. Additional benign and/or incidental findings described above.
[2018-02-17 13:40] VITALS: BP 124/76; PULSE 82; O2SAT 98
== END 2018-02-17 13:33 | disposition home or self-care (01) ==
LOC: ED 11:12
DX: N83.209 Unspecified ovarian cyst, unspecified side (principal); M32.9 Systemic lupus erythematosus, unspecified
CPT/HCPCS: 76830; 80053; 81001; 83690; 84703; 85025; 87086; 96374; 96375; 99284; J1885; J2405; J7040

== ENCOUNTER 2018-02-21 13:50 | Emergency (ER) | payer BC ==
[2018-02-21 13:51] VITALS: BMI 27.3
[2018-02-21 13:59] VITALS: TEMP 98.2; O2SAT 98
--- NOTE | 2018-02-21 15:13 | ED PDOC ---
Arrival/HPI - General Chief Complaint: GI Problem Time Seen by Provider: 02/21/18 14:33 Historian: Patient - History of Present Illness Narrative History of Present Illness (Text): 02/21/18 15:09 This 33 yo female presents to this ED c/o constipation x 3 days. Patient stated last BM x 3 days ago was small and hard. Patient took Mag. Citrate early this morning without significant relief of symptoms. Denies abdominal pain, n/v, sob, cp, dizziness, or abnormal gait. Time/Duration: Other (see hpi) Context: Home Past Medical History - Provider Review Nursing Documentation Reviewed: Yes - Infectious Disease Hx of Infectious Diseases: None - Tetanus Immunization Tetanus Immunization: Unknown - Past Medical History Past Medical History: No Previous - Cardiac Hx Cardiac Disorders: No Hx Pacemaker: No - Pulmonary Hx Respiratory Disorders: No - Neurological Hx Neurological Disorder: No Hx Paralysis: No - HEENT Hx HEENT Disorder: No - Renal Hx Renal Disorder: No - Endocrine/Metabolic Hx Endocrine Disorders: No - Hematological/Oncological Hx Blood Disorders: No - Integumentary Hx Dermatological Disorder: No - Musculoskeletal/Rheumatological Hx Musculoskeletal Disorders: No - Gastrointestinal Hx Gastrointestinal Disorders: Yes Hx Gastroesophageal Reflux: Yes Other/Comment: HIATAL HERNIA - Genitourinary/Gynecological Hx Genitourinary Disorders: Yes Other/Comment: endometriosis - Psychiatric Hx Psychophysiologic Disorder: No Hx Emotional Abuse: No Hx Physical Abuse: No Hx Substance Use: No - Past Surgical History Past Surgical History: No Previous - Surgical History Other/Comment: abd cyst/laproscopy - Anesthesia Hx Anesthesia: Yes Hx Anesthesia Reactions: No - Suicidal Assessment Feels Threatened In Home Enviroment: No Family/Social History - Physician Review Nursing Documentation Reviewed: Yes Family/Social History: Other (noncontributory) Smoking Status: Never Smoked Hx Alcohol Use: Yes (SOCIAL) Hx Substance Use: No Hx Substance Use Treatment: No Allergies/Home Meds Allergies/Adverse Reactions: Allergies No Known Allergies Allergy (Verified 02/21/18 13:53) Home Medications: Home Meds Medication Instructions Recorded Confirmed l-Norgest/E.estradiol-E.estrad 1 tab PO DAILY 02/21/18 02/21/18 [Seasonique 0.15-0.03-0.01 Tab] oxyCODONE/Acetaminophen [Percocet 1 tab PO PRN PRN 02/21/18 02/21/18 5/325 mg Tab] Review of Systems - Review of Systems Constitutional: Normal. absent: Fatigue, Weight Change, Fevers Eyes: Normal ENT: Normal Respiratory: Normal. absent: SOB, Cough Cardiovascular: Normal. absent: Chest Pain Gastrointestinal: Constipation. absent: Abdominal Pain, Diarrhea, Nausea, Vomiting Genitourinary Female: Normal. absent: Dysuria, Frequency, Hematuria Musculoskeletal: Normal. absent: Back Pain Skin: Normal. absent: Rash Neurological: Normal. absent: Headache, Dizziness, Focal Weakness, Gait Changes , Speech Changes, Facial Droop, Disequilibrium, Seizure Endocrine: Normal Hemo/Lymphatic: Normal Psychiatric: Normal Physical Exam Vital Signs Temp Pulse Resp BP Pulse Ox 02/21/18 15:42 98.2 F 84 18 132/75 98 02/21/18 13:54 98.2 F 86 16 120/80 98 Temperature: Afebrile Blood Pressure: Normal Pulse: Regular Respiratory Rate: Normal Appearance: Positive for: Well-Appearing, Non-Toxic, Comfortable Pain Distress: None Mental Status: Positive for: Alert and Oriented X 3 - Systems Exam Head: Present: Atraumatic, Normocephalic Pupils: Present: PERRL Extroacular Muscles: Present: EOMI Conjunctiva: Present: Normal Mouth: Present: Moist Mucous Membranes Neck: Present: Normal Range of Motion Abdomen: No: Tenderness, Distention, Peritoneal Signs, Rebound, Guarding Rectal: Present: Hemorrhoids (nontender hemorrhoid. ), Normal Rectal Tone, Other (hard stool felt in rectum). No: Occult Blood, Rectal Tenderness, Gross Blood, Melena, Fissures Back: Present: Normal Inspection. No: CVA Tenderness Upper Extremity: Present: Normal Inspection, Normal ROM. No: Cyanosis, Edema Lower Extremity: Present: Normal Inspection, Normal ROM. No: Edema Neurological: Present: GCS=15, CN II-XII Intact, Speech Normal Skin: Present: Warm, Dry, Normal Color. No: Rashes Psychiatric: Present: Alert, Oriented x 3, Normal Insight, Normal Concentration Medical Decision Making ED Course and Treatment: 02/21/18 17:23 Re-evaluation. Patient feels better. Discussed results and plan with patient who expresses understanding. All questions answered and there is agreement with the plan to discharge home with instructions. Patient stable for discharge. Return if symptoms persist or worsen. Re-evaluation Time: 17:23 Reassessment Condition: Re-examined, Improved - Medication Orders Current Medication Orders: Discontinued Medications Lactulose (Enulose) 30 gm PO ONCE STA Stop: 02/21/18 15:32 Last Admin: 02/21/18 16:25 Dose: 30 gm Mineral Oil (Fleet Mineral Oil Enema) 135 ml RC ONCE ONE Stop: 02/21/18 15:33 Last Admin: 02/21/18 16:25 Dose: 135 ml Disposition/Present on Arrival - Present on Arrival Any Indicators Present on Arrival: No History of DVT/PE: No History of Uncontrolled Diabetes: No Urinary Catheter: No History of Decub. Ulcer: No History Surgical Site Infection Following: None - Disposition Have Diagnosis and Disposition been Completed?: Yes Diagnosis: Constipation Disposition: HOME/ ROUTINE Disposition Time: 17:23 Patient Problems: Current Active Problems Problem Status Onset Constipation Acute Condition: GOOD Discharge Instructions (ExitCare): Constipation in Adults Additional Instructions: Call private doctor for follow up visit in 1-2 days. Take medication as instructed . Return to emergency if symptoms return Prescriptions: Lactulose 20 gm PO BID PRN #1 bottle PRN Reason: Constipation Polyethylene Glycol 3350 [Miralax] 17 gm PO DAILY #1 bottle Referrals: John Alexander MD [Staff Provider] - Follow up with primary Forms: [facility] (Luxem[place]ish), WORK NOTE
[2018-02-21] MEDS ORDERED: Mineral Oil Enema 135 ml RC ONE (15:32)
[2018-02-21 15:42] VITALS: RESP 18
[2018-02-21 17:31] VITALS: BP 128/69; PULSE 79
== END 2018-02-21 18:18 | disposition home or self-care (01) ==
LOC: ED 13:50
DX: K59.00 Constipation, unspecified (principal)

== ENCOUNTER 2018-06-02 15:43 | Emergency (ER) | payer BC, OTHER ==
[2018-06-02 15:43] VITALS: BMI 27.3
[2018-06-02 17:13] VITALS: TEMP 98
--- NOTE | 2018-06-02 18:04 | ED PDOC ---
Arrival/HPI - General Chief Complaint: Abdominal Pain Time Seen by Provider: 06/02/18 17:21 Historian: Patient - History of Present Illness Narrative History of Present Illness (Text): 06/02/18 17:46 A 33 year old female, whose past medical history includes endometriosis, adenomyosis, and ovarian cyst, presents to the emergency department with complaint of sudden onset right pelvic pain. Patient states that around 8 AM today she began to feel the constant, sharp pelvic pain that radiated to the flank. She notes the pain is worsened with walking and bending. She notes that the pain is similar to that of her endometriosis. She reports that she has a surgery scheduled on 06/13 to have the adenomyosis removed. Patient states her last menstrual period was 2 weeks ago. The patient denies fevers, chills, headache, dizziness, sore throat, cough, chest pain, shortness of breath, dyspnea on exertion, nausea, vomiting, diarrhea, neck pain, urinary/bowel changes, vaginal discharge/bleeding, or any other complaint. OBGYN: Dr. Limon Time/Duration: Other (This Morning) Symptom Onset: Sudden Symptom Course: Unchanged Activities at Onset: Rest, Light Context: Home Past Medical History - Provider Review Nursing Documentation Reviewed: Yes - Infectious Disease Hx of Infectious Diseases: None - Tetanus Immunization Tetanus Immunization: Unknown - Past Medical History Past Medical History: No Previous - Cardiac Hx Cardiac Disorders: No Hx Pacemaker: No - Pulmonary Hx Respiratory Disorders: No - Neurological Hx Neurological Disorder: No Hx Paralysis: No - HEENT Hx HEENT Disorder: No - Renal Hx Renal Disorder: No - Endocrine/Metabolic Hx Endocrine Disorders: No - Hematological/Oncological Hx Blood Disorders: No - Integumentary Hx Dermatological Disorder: No - Musculoskeletal/Rheumatological Hx Musculoskeletal Disorders: No - Gastrointestinal Hx Gastrointestinal Disorders: Yes Hx Gastroesophageal Reflux: Yes Other/Comment: HIATAL HERNIA - Genitourinary/Gynecological Hx Genitourinary Disorders: Yes Hx Urinary Tract Infection: Yes Other/Comment: endometriosis - Psychiatric Hx Psychophysiologic Disorder: No Hx Emotional Abuse: No Hx Physical Abuse: No Hx Substance Use: No - Past Surgical History Past Surgical History: No Previous - Surgical History Other/Comment: abd cyst/laproscopy - Anesthesia Hx Anesthesia: Yes Hx Anesthesia Reactions: No - Suicidal Assessment Feels Threatened In Home Enviroment: No Family/Social History - Physician Review Nursing Documentation Reviewed: Yes Family/Social History: No Known Family HX Smoking Status: Never Smoked Hx Alcohol Use: Yes (SOCIAL) Hx Substance Use: No Hx Substance Use Treatment: No Allergies/Home Meds Allergies/Adverse Reactions: Allergies No Known Allergies Allergy (Verified 06/02/18 17:09) Home Medications: Home Meds Medication Instructions Recorded Confirmed oxyCODONE/Acetaminophen [Percocet 1 tab PO PRN PRN 02/21/18 06/02/18 5/325 mg Tab] Review of Systems - Physician Review All systems were reviewed & negative as marked: Yes - Review of Systems Constitutional: absent: Fevers, Night Sweats ENT: absent: Sore Throat Respiratory: absent: SOB, Cough Cardiovascular: absent: Chest Pain, SHEIKH Gastrointestinal: Abdominal Pain. absent: Stool Changes, Diarrhea, Nausea, Vomiting Genitourinary Female: absent: Urine Output Changes, Vaginal Bleeding, Vaginal Discharge Musculoskeletal: absent: Back Pain, Neck Pain Physical Exam Vital Signs Reviewed: Yes Vital Signs Temp Pulse Resp BP Pulse Ox 06/02/18 17:10 98.0 F 86 16 115/77 97 Temperature: Afebrile Blood Pressure: Normal Pulse: Regular Respiratory Rate: Normal Appearance: Positive for: Well-Appearing, Non-Toxic, Comfortable Pain Distress: None Mental Status: Positive for: Alert and Oriented X 3 - Systems Exam Head: Present: Atraumatic, Normocephalic Pupils: Present: PERRL Extroacular Muscles: Present: EOMI Conjunctiva: Present: Normal Mouth: Present: Moist Mucous Membranes Neck: Present: Normal Range of Motion Respiratory/Chest: Present: Clear to Auscultation, Good Air Exchange. No: Respiratory Distress, Accessory Muscle Use Cardiovascular: Present: Regular Rate and Rhythm, Normal S1, S2. No: Murmurs Abdomen: Present: Tenderness (Point tenderness to the right pelvic area). No: Distention, Peritoneal Signs Back: Present: Normal Inspection Upper Extremity: Present: Normal Inspection. No: Cyanosis, Edema Lower Extremity: Present: Normal Inspection. No: Edema Neurological: Present: GCS=15, CN II-XII Intact, Speech Normal Skin: Present: Warm, Dry, Normal Color. No: Rashes Psychiatric: Present: Alert, Oriented x 3, Normal Insight, Normal Concentration Medical Decision Making ED Course and Treatment: 06/02/18 18:07 Impression: A 33 year old female presents to the emergency department with complaint of sudden onset pelvic pain. Plan: -- Transvainal Ultrasound -- Urinalysis -- Urine Culture -- Labs -- Reassess and disposition Progress Notes: Labs : wbc wnl, LFTs elevated, prior labs compared, patient has a h/o elevated LFTs in the 200's, more elevated today, will add US abd. Uhcg (-), UA (-). 06/02/18 19:37 US TV : FINDINGS: UTERUS: Measures 3.3 x 4.4 x 6.8 cm. Normal in size and appearance. No fibroid or other mass lesion seen. ENDOMETRIUM: Measures 7.0 mm in diameter. No ultrasound findings to suggest gestational sac, fluid, debris, mass or polyp or other pathologic process within the endometrium. CERVIX: No cervical abnormality identified.Incidental finding: Nabothian cysts the largest measures 1 cm RIGHT OVARY: Measures 2.4 x 1.9 x 3.3 cm. Complex, perhaps hemorrhagic cyst 1.6 x 1.4 cm. Normal flow. Multiple subcentimeter follicles. LEFT OVARY: Measures 2.1 x 1.3 x 2.5 cm. No solid mass. Normal flow. Multiple subcentimeter follicles. FREE FLUID: No significant free fluid noted. OTHER FINDINGS: None. IMPRESSION: No evidence of adnexal torsion. Additional benign and/or incidental findings described above. 06/02/18 20:28 US Abd : FINDINGS: Liver: Hepatic steatosis. Measures 15.6 cm. Gallbladder: The gallbladder is contracted with apparent wall thickening, probably exaggerated bladder distention. Evaluation for cholelithiasis is limited due to contracted status of the gallbladder. Correlate clinically. If clinically warranted consider repeat examination when the patient is n.p.o. Common bile duct: Common bile duct is upper limits of normal in size for patient 's stated age, measuring up to 6 mm. No stones. No dilation. Pancreas: Unremarkable as visualized. Kidneys: Left kidney measures 10.3 cm. Right kidney measures 9.5 cm. No hydronephrosis. Spleen: Measures 9.6 x 3.9 x 4 cm. No splenomegaly. Aorta: Not visualized. Inferior vena cava: Unremarkable. Other findings: Steatosis. IMPRESSION: 1. Hepatic steatosis. 2. The gallbladder is contracted with apparent wall thickening, probably exaggerated bladder distention. Evaluation for cholelithiasis is limited due to contracted status of the gallbladder. Correlate clinically. If clinically warranted consider repeat examination when the patient is n.p.o. 3. Common bile duct is upper limits of normal in size for patient's stated age, measuring up to 6 mm. Thank you for allowing us to participate in the care of your patient. Dictated and Authenticated by: Justine Dumont MD 06/02/2018 7:44 PM Eastern Time ([place] & [place]) 06/02/18 20:42 On re-evaluation, patient reports improvement of symptoms, denies any nausea. Patient admits to a h/o elevated LFTs, states that she has had a full workup including hepatitis panel with GI including liver biospy and cause of elevated LFTs are unknown. On exam, patient remains AAOx3, in no acute distress. Abdomen soft, non-tender. Diagnostic results d/w the patient in great detail. Diagnosis of pelvic pain, ovarian cyst d/w the patient. Based on history, exam and diagnostic results, plan will be for outpatient follow up with institutional custodian. Patient instructed to follow-up with institutional custodian in 1-2 days without fail. Advised to take medication as prescribed. Return to the emergency room at any time for any new or worsening symptoms. Patient states she fully agrees with and understands discharge instructions. States that she agrees with the plan and disposition. Verbalized and repeated discharge instructions and plan. I have given the patient opportunity to ask any additional questions. - Lab Interpretations Lab Results: 06/02/18 18:10 06/02/18 18:10 Lab Results 06/02/18 18:10: Sodium 140, Potassium 3.6, Chloride 103, Carbon Dioxide 27, Anion Gap 13, BUN 8, Creatinine 0.6 L, Est GFR ( Amer) > 60, Est GFR (Non -Af Amer) > 60, Random Glucose 141 H, Calcium 9.6, Total Bilirubin 0.4, AST 606 H D, ALT 756 H, Alkaline Phosphatase 107, Total Protein 7.4, Albumin 3.9, Globulin 3.5, Albumin/Globulin Ratio 1.1 06/02/18 18:10: WBC 9.7 D, RBC 4.28, Hgb 13.7, Hct 39.0, MCV 91.1, MCH 32.0, MCHC 35.1, RDW 13.1, Plt Count 292, MPV 9.4, Gran % 68.6 H, Lymph % (Auto) 24.8 , [place] % (Auto) 3.9, Eos % (Auto) 2.4, Baso % (Auto) 0.3, Gran # 6.67 H, Lymph # (Auto) 2.4, [place] # (Auto) 0.4, Eos # (Auto) 0.2, Baso # (Auto) 0.03 06/02/18 17:25: Urine Color Yellow, Urine Appearance Clear, Urine pH 6.0, Ur Specific [place] >= 1.030, Urine Protein Negative, Urine Glucose (UA) Negative, Urine Ketones Negative, Urine Blood Negative, Urine Nitrate Negative, Urine Bilirubin Negative, Urine Urobilinogen 0.2, Ur Leukocyte Esterase Negative, Urine HCG, Qual Negative I have reviewed the lab results: Yes - RAD Interpretation Radiology Orders: 06/02/18 17:30 TRANSVAGINAL [US] Stat 06/02/18 18:50 ABDOMEN COMPLETE [US] Stat - Medication Orders Current Medication Orders: Discontinued Medications Ketorolac Tromethamine (Toradol) 30 mg IVP STAT STA Stop: 06/02/18 17:32 Last Admin: 06/02/18 17:55 Dose: 30 mg MAR Pain Assessment Document 06/02/18 17:55 [email or web address] (Rec: 06/02/18 19:26 CASTS1 [id number]) Pain Reassessment Is this a pain reassessment? No Sleep Is patient sleeping during reassessment? No Presence of Pain Presence of Pain Yes Pain Scale Used Pain Scale Used Numeric Location Left, Right or Bilateral Right Upper or Lower Lower Pain Location Body Site Abdomen Description Description Constant Intensity of Pain at present 7 Pain Behavior Facial Grimacing Aggravating Factors Changing Position Alleviating Factors/Management Position Change Techniques Alleviating Factors Medication IVP Administration Document 06/02/18 17:55 [email or web address] (Rec: 06/02/18 19:26 CASTS1 [id number]) Charges for Administration # of IVP Administrations 1 Morphine Sulfate (Morphine) 4 mg IVP STAT STA Stop: 06/02/18 19:50 Last Admin: 06/02/18 19:57 Dose: 4 mg MAR Pain Assessment Document 06/02/18 19:57 CNR (Rec: 06/02/18 19:57 CNR [id number]) Pain Reassessment Is this a pain reassessment? No IVP Administration Document 06/02/18 19:57 CNR (Rec: 06/02/18 19:57 CNR [id number]) Charges for Administration # of IVP Administrations 1 Ondansetron HCl (Zofran Inj) 4 mg IVP STAT STA Stop: 06/02/18 19:47 Last Admin: 06/02/18 19:56 Dose: 4 mg IVP Administration Document 06/02/18 19:56 CNR (Rec: 06/02/18 19:57 CNR [id number]) Charges for Administration # of IVP Administrations 1 - PA / TALENT DEVELOPMENT DIRECTOR / Resident Statement MD/DO has reviewed & agrees with the documentation as recorded. - Scribe Statement The provider has reviewed the documentation as recorded by the Scribe Magalys Pruitt Provider Scribe Attestation: All medical record entries made by the Scribe were at my direction and personally dictated by me. I have reviewed the chart and agree that the record accurately reflects my personal performance of the history, physical exam, medical decision making, and the department course for this patient. I have also personally directed, reviewed, and agree with the discharge instructions and disposition. Disposition/Present on Arrival - Present on Arrival Any Indicators Present on Arrival: No History of DVT/PE: No History of Uncontrolled Diabetes: No Urinary Catheter: No History of Decub. Ulcer: No History Surgical Site Infection Following: None - Disposition Have Diagnosis and Disposition been Completed?: Yes Diagnosis: Pelvic pain, Ovarian cyst Disposition: HOME/ ROUTINE Disposition Time: 20:40 Patient Plan: Discharge Condition: STABLE Discharge Instructions (ExitCare): Ovarian Cysts, Acute Pelvic Pain (DC) Additional Instructions: Thank you for letting us take care of you today. You were treated for pelvic pain, ovarian cyst, h/o endometriosis. The emergency medical care you received today was directed at your acute symptoms. If you were prescribed any medication , please fill it and take as directed. It may take several days for your symptoms to resolve. Return to the Emergency Department if your symptoms worsen , do not improve, or if you have any other problems. Please contact your institutional custodian doctor in 2 days for re-evaluation and follow up. Bring any paperwork you were given at discharge with you along with any medications you are taking to your follow up visit. Our treatment cannot replace ongoing medical care by a primary care provider (PCP) outside of the emergency department. [facility]. Prescriptions: Ondansetron ODT [Zofran ODT] 4 mg PO DAILY PRN #20 odt PRN Reason: Nausea/Vomiting Forms: [employer] (Macedonian), WORK NOTE
[2018-06-02 18:19] LABS: BASO # 0.03 K/mm3 (0.0-2.0); BASO % 0.3 % (0.0-3.0); EOS # 0.2 (0.0-0.7); EOS % 2.4 % (1.5-5.0); GRAN # 6.67 (1.4-6.5); GRAN % 68.6 % (50.0-68.0); HEMOGLOBIN 13.7 g/dL (12.0-16.0); LYMPH # 2.4 (1.2-3.4); LYMPH % 24.8 % (22.0-35.0); MEAN CELL VOLUME 91.1 fl (80.0-105.0); MEAN CORPUSCULAR HGB CONC 35.1 g/dl (31.0-37.0); MEAN PLATELET VOLUME 9.4 fl (7.0-11.0); MONO # 0.4 (0.1-0.6); MONO % 3.9 % (1.0-6.0); RBC 4.28 10^6/uL (3.5-6.1); RED CELL DISTRIBUTION WIDTH 13.1 % (11.5-14.5); WHITE BLOOD COUNT 9.7 10^3/ul (4.5-11.0)
[2018-06-02 18:28] LABS: ALB/GLOB RATIO 1.1 (1.1-1.8); ALBUMIN 3.9 g/dL (3.0-4.8); ALT/SGPT 756 U/L (7-56); AST/SGOT 606 U/L (14-36); BLOOD UREA NITROGEN 8 mg/dL (7-21); CALCIUM 9.6 mg/dL (8.4-10.5); GFR AFRICAN-AMERICAN > 60; GFR NON-AFRICAN AMERICAN > 60
--- NOTE | 2018-06-02 19:05 | US ---
Date of service: 06/02/2018 HISTORY: R pelvic pain, r/o torsion, h/o endometriosis LMP 05/18/2018. COMPARISON: 02/17/2018. TECHNIQUE: Transvaginal only. Real -time technique with 2D, duplex and color Doppler FINDINGS: UTERUS: Measures 3.3 x 4.4 x 6.8 cm. Normal in size and appearance. No fibroid or other mass lesion seen. ENDOMETRIUM: Measures 7.0 mm in diameter. No ultrasound findings to suggest gestational sac, fluid, debris, mass or polyp or other pathologic process within the endometrium. CERVIX: No cervical abnormality identified.Incidental finding: Nabothian cysts the largest measures 1 cm RIGHT OVARY: Measures 2.4 x 1.9 x 3.3 cm. Complex, perhaps hemorrhagic cyst 1.6 x 1.4 cm. Normal flow. Multiple subcentimeter follicles. LEFT OVARY: Measures 2.1 x 1.3 x 2.5 cm. No solid mass. Normal flow. Multiple subcentimeter follicles. FREE FLUID: No significant free fluid noted. OTHER FINDINGS: None. IMPRESSION: No evidence of adnexal torsion. Additional benign and/or incidental findings described above.
[2018-06-02] MEDS ORDERED: Morphine 4 mg/ml ISec IVP STA ×2 (19:46→19:49)
[2018-06-02 20:22] LABS: URINE BILIRUBIN NEGATIVE (NEGATIVE); URINE BLOOD NEGATIVE (NEGATIVE); URINE GLUCOSE (UA) NEGATIVE (NEGATIVE); URINE PROTEIN NEGATIVE mg/dL (<30 mg/dL); URINE UROBILINOGEN 0.2 E.U./dL (<1 E.U./dL)
[2018-06-02 20:26] LABS: HCG,QUALITATIVE URINE NEGATIVE (NEGATIVE); URINE APPEARANCE CLEAR (CLEAR); URINE COLOR YELLOW (YELLOW)
[2018-06-02 20:27] LABS: URINE LEUKOCYTE ESTERASE NEGATIVE Leu/uL (NEGATIVE)
[2018-06-02 20:54] VITALS: BP 112/68; PULSE 69; RESP 17; O2SAT 98
--- NOTE | 2018-06-03 10:49 | US ---
Date of service: 06/02/2018 HISTORY: R sided abd pain, elevated LFTs COMPARISON: None. TECHNIQUE: Sonographic evaluation of the abdomen. Patient ate at 4 o p.m. the study is performed at approximately 7 o FINDINGS: LIVER: Measures 15.6 cm. Minimal increased diffuse echogenicity of the liver parenchyma. No mass. No intrahepatic bile duct dilatation. Flow in the portal vein is normal hepatopetal GALLBLADDER: Nondistended. No gross shadowing calculi seen. Limited evaluation for any potential gallbladder wall thickening no gross pericholecystic fluid. No positive sonographic Emanuel sign elicited. COMMON BILE DUCT: Measures 6.0 mm. Top-normal for patient's age. No stones. No dilatation. PANCREAS: Unremarkable as visualized. No mass. No ductal dilatation. RIGHT KIDNEY: Measures 9.6 x 4.4 x 4.4cm. Normal echogenicity. No calculus, mass, or hydronephrosis. LEFT KIDNEY: Measures 10.3 x 6.1 x 4.6cm. Normal echogenicity. No calculus, mass, or hydronephrosis. SPLEEN: Normal in size and contour. No mass. AORTA: Not visualized. IVC: Unremarkable. OTHER FINDINGS: None. IMPRESSION: Nondistended gallbladder compatible with ingestion as above. No gross gallstones. No pericholecystic fluid. No positive Emanuel sign. No dilated ducts. Mild diffuse increased echogenicity of the liver can be seen with hepatic steatosis as well as other diffuse hepatic parenchymal pathologies. No masses noted. No dilated ducts appreciated Concordant results (preliminary interpretation) provided by [facility].
== END 2018-06-02 20:52 | disposition home or self-care (01) ==
LOC: ED 15:43
DX: R10.2 Pelvic and perineal pain (principal); N83.201 Unspecified ovarian cyst, right side; N80.0 Endometriosis of uterus
CPT/HCPCS: 76700; 76830; 80053; 81003; 84703; 85025; 87086; 96374; 96375; 99284; J1885; J2270; J2405

== ENCOUNTER 2018-07-18 06:19 | Day surgery (SDC) | payer OTHER ==
[2018-07-18] MEDS ORDERED: Propofol 10 mg/ml Inj (20 ML) ONE ×2 (08:26→08:43)
[2018-07-18] MEDS ORDERED: Sodium Chloride 0.9% 1,000 ML IV SCH (09:00)
[2018-07-18 10:17] VITALS: BP 110/75; PULSE 60; RESP 16; TEMP 97.8; O2SAT 100
== END 2018-07-18 10:26 | disposition home or self-care (01) ==
LOC: ENDO 06:19
PROVIDERS: ATTEND Internal Medicine Gastroenterology
DX: K21.0 Gastro-esophageal reflux disease with esophagitis (principal); K29.70 Gastritis, unspecified, without bleeding; R13.10 Dysphagia, unspecified
CPT/HCPCS: 43239; 84703; 88305; 88312; 88342; J2001; J2704; J7030; J7040

== ENCOUNTER 2019-02-04 06:29 | Emergency (ER) | payer OTHER ==
[2019-02-04 06:30] VITALS: BMI 27.3
[2019-02-04 06:42] VITALS: BP 108/71; PULSE 74; RESP 20; TEMP 97.9; O2SAT 100
--- NOTE | 2019-02-04 07:58 | ED PDOC ---
Arrival/HPI - General Chief Complaint: Female Genitourinary Time Seen by Provider: 02/04/19 07:12 Historian: Patient - History of Present Illness Narrative History of Present Illness (Text): 02/04/19 07:51 34 year old female, whose past medical history includes endometriosis, who presents to the ED for left lower abdominal pain since 2 hours ago. Patient describes the pain as shooting, stabbing, constant pain. Patient reports previous similar symptoms due to her endometriosis, but notes she has had surgery recently and have not experienced such symptoms again until today. Patient also notes she has a cyst on her right ovary. Patient denies any fevers, chills, headache, dizziness, chest pain, shortness of breath, dyspnea on exertion, cough, nausea, vomiting, diarrhea, back pain, neck pain, urinary/bowel changes, abnormal bleeding or discharge, or any other complaints. Time/Duration: 1-3 hours Symptom Onset: Gradual Symptom Course: Unchanged Quality: Stabbing Activities at Onset: Light Context: Work Past Medical History - Provider Review Nursing Documentation Reviewed: Yes - Infectious Disease Hx of Infectious Diseases: None - Tetanus Immunization Tetanus Immunization: Unknown - Past Medical History Past Medical History: No Previous - Cardiac Hx Pacemaker: No - Pulmonary Hx Respiratory Disorders: No - Neurological Hx Paralysis: No - HEENT Hx HEENT Disorder: No - Renal Hx Renal Disorder: No - Endocrine/Metabolic Hx Endocrine Disorders: No - Hematological/Oncological Hx Blood Transfusions: No Hx Blood Transfusion Reaction: No - Integumentary Hx Dermatological Disorder: No - Musculoskeletal/Rheumatological Hx Musculoskeletal Disorders: No - Gastrointestinal Hx Gastrointestinal Disorders: Yes Hx Gastroesophageal Reflux: Yes Other/Comment: HIATAL HERNIA - Genitourinary/Gynecological Hx Genitourinary Disorders: Yes Hx Urinary Tract Infection: Yes Other/Comment: endometriosis - Psychiatric Hx Emotional Abuse: No Hx Physical Abuse: No Hx Substance Use: No - Past Surgical History Past Surgical History: No Previous - Surgical History Other/Comment: left ovarian cyst. laproscopy. liver biopsy - Anesthesia Hx Anesthesia: Yes Hx Anesthesia Reactions: No Hx Malignant Hyperthermia: No - Suicidal Assessment Feels Threatened In Home Enviroment: No Family/Social History - Physician Review Nursing Documentation Reviewed: Yes Family/Social History: Unknown Family HX Smoking Status: Never Smoked Hx Alcohol Use: Yes (SOCIAL) Hx Substance Use: No Hx Substance Use Treatment: No Allergies/Home Meds Allergies/Adverse Reactions: Allergies No Known Allergies Allergy (Verified 02/04/19 06:34) Review of Systems - Physician Review All systems were reviewed & negative as marked: Yes - Review of Systems Constitutional: Normal Eyes: Normal ENT: Normal Respiratory: Normal. absent: SOB, Cough Gastrointestinal: absent: Stool Changes, Diarrhea, Nausea, Vomiting Genitourinary Female: Other (left lower abdominal pain). absent: Vaginal Bleeding, Vaginal Discharge Musculoskeletal: absent: Back Pain, Neck Pain Skin: Normal. absent: Rash Neurological: absent: Headache, Dizziness Endocrine: absent: Diaphoresis Hemo/Lymphatic: absent: Adenopathy Psychiatric: absent: Anxiety, Depression Physical Exam Vital Signs Reviewed: Yes Vital Signs Temp Pulse Resp BP Pulse Ox 02/04/19 06:41 97.9 F 74 20 108/71 100 Temperature: Afebrile Blood Pressure: Normal Pulse: Regular Respiratory Rate: Normal Appearance: Positive for: Well-Appearing, Non-Toxic, Comfortable Pain Distress: None Mental Status: Positive for: Alert and Oriented X 3 - Systems Exam Head: Present: Atraumatic, Normocephalic Pupils: Present: PERRL Extroacular Muscles: Present: EOMI Conjunctiva: Present: Normal Respiratory/Chest: Present: Clear to Auscultation, Good Air Exchange. No: Respiratory Distress, Accessory Muscle Use Cardiovascular: Present: Regular Rate and Rhythm, Normal S1, S2. No: Murmurs Abdomen: Present: Tenderness (LLQ tenderness), Normal Bowel Sounds. No: Distention, Peritoneal Signs, Rebound, Guarding Neurological: Present: GCS=15, Speech Normal Skin: Present: Warm, Dry, Normal Color. No: Rashes Psychiatric: Present: Alert, Oriented x 3, Normal Insight, Normal Concentration Medical Decision Making ED Course and Treatment: 02/04/19 08:02 Impression: 34 year old female who presents to the ED for left pelvic pain. Plan: -- Toradol -- Urine Test -- Urinalysis -- Reassess and disposition Prior Visits: Notes and results from previous visits were reviewed. Progress Notes: 02/04/19 09:09 Patient states feeling better and would like to go home. Patient is very well appearing and non-toxic. Vital signs are stable. I discussed the results of the work-up, diagnosis and treatment. Written discharge instructions were provided to patient. Additional verbal instructions were given and discussed with patient. Patient was prescribed Motrin to go home with. We discussed the importance of follow up with PCP/consultants. I also reiterated reasons to immediately return to the ER including: worsening in current symptoms and/or new, continued, or concerning symptoms. Pt understood and agreed. - Medication Orders Current Medication Orders: Discontinued Medications Ketorolac Tromethamine (Toradol) 60 mg IM STAT STA Stop: 02/04/19 07:35 Last Admin: 02/04/19 07:46 Dose: 60 mg MAR Pain Assessment Document 02/04/19 07:46 BB (Rec: 02/04/19 07:47 BB [id number]) Pain Reassessment Is this a pain reassessment? No Sleep Is patient sleeping during reassessment? No Presence of Pain Presence of Pain Yes Pain Scale Used Protocol: PSCALES Pain Scale Used Numeric Location Left, Right or Bilateral Bilateral Pain Location Body Site Groin Description Description Constant Intensity of Pain at present 10 Pain Behavior Moaning Guarding Grasping Site Rubbing Site Restlessness Facial Grimacing IM Administration Charges Document 02/04/19 07:46 BB (Rec: 02/04/19 07:47 BB [id number]) Injection Site MAR Injection Site Right Gluteus Christopher Charges for Administration # of IM Administrations 1 - Scribe Statement The provider has reviewed the documentation as recorded by the Camila Salazar training under [facility] Provider Scribe Attestation: All medical record entries made by the Scribe were at my direction and personally dictated by me. I have reviewed the chart and agree that the record accurately reflects my personal performance of the history, physical exam, medical decision making, and the department course for this patient. I have also personally directed, reviewed, and agree with the discharge instructions and disposition. Disposition/Present on Arrival - Present on Arrival Any Indicators Present on Arrival: No History of DVT/PE: No History of Uncontrolled Diabetes: No Urinary Catheter: No History of Decub. Ulcer: No History Surgical Site Infection Following: None - Disposition Have Diagnosis and Disposition been Completed?: Yes Diagnosis: Pelvic pain, UTI (urinary tract infection) Disposition: HOME/ ROUTINE Disposition Time: 08:55 Patient Plan: Discharge Condition: IMPROVED Discharge Instructions (ExitCare): Asymptomatic Bacteriuria, Acute Pelvic Pain (DC) Prescriptions: Ibuprofen [Motrin Tab] 800 mg PO TID PRN #30 tab PRN Reason: Pain, Moderate (4-7) Nitrofurantoin Monohyd/M-Cryst [Macrobid 100 mg Capsule] 100 mg PO BID #10 capsule Referrals: Augie Campbell MD [Primary Care Provider] - Follow up with primary Forms: [employer] (Upper Sorbian), SCHOOL NOTE, WORK NOTE
[2019-02-04 08:30] LABS: URINE APPEARANCE CLEAR (CLEAR); URINE BILIRUBIN NEGATIVE (NEGATIVE); URINE BLOOD NEGATIVE (NEGATIVE); URINE COLOR YELLOW (YELLOW); URINE GLUCOSE (UA) NEGATIVE (NEGATIVE); URINE LEUKOCYTE ESTERASE LARGE Leu/uL (NEGATIVE); URINE PROTEIN NEGATIVE mg/dL (<30 mg/dL); URINE UROBILINOGEN 0.2 E.U./dL (<1 E.U./dL)
[2019-02-04 08:37] LABS: URINE RBC 0 - 2 /hpf (0-2); URINE WBC 20 - 25 /hpf (0-6)
[2019-02-04 08:38] LABS: URINE BACTERIA MANY /hpf
== END 2019-02-04 09:12 | disposition home or self-care (01) ==
LOC: ED 06:29
DX: N39.0 Urinary tract infection, site not specified (principal); R10.2 Pelvic and perineal pain
CPT/HCPCS: 81001; 81025; 87086; 96372; 99283; J1885

== ENCOUNTER 2019-02-06 04:39 | Emergency (ER) | payer OTHER ==
[2019-02-06 04:40] VITALS: BMI 27.3
[2019-02-06 04:52] VITALS: RESP 16; TEMP 97.4
--- NOTE | 2019-02-06 05:05 | ED PDOC ---
Arrival/HPI - General Chief Complaint: Abdominal Pain Time Seen by Provider: 02/06/19 04:47 Historian: Patient - History of Present Illness Narrative History of Present Illness (Text): 02/06/19 05:02 34 year old female, whose past medical history includes endometriosis and ovarian cyst, presents to the emergency department sharp abdominal pain today. Patient informs she is having sharp pain to the epigastric region. Patient informs her dog jumped on her 2 or 3 days ago and there is an area of abdominal tenderness to her left sided abdomen. Patient states she is unsure if her sharp pain today is related to that. Patient informs she is also feeling nausea today. Patient denies any vomiting. Patient also denies any fevers, chills, headache, dizziness, chest pain, shortness of breath, dyspnea on exertion, cough, diaphoresis, back pain, neck pain, or any other complaint. Time/Duration: Prior to Arrival Symptom Onset: Gradual Symptom Course: Unchanged Quality: Stabbing Activities at Onset: Light Context: Work Past Medical History - Provider Review Nursing Documentation Reviewed: Yes - Infectious Disease Hx of Infectious Diseases: None - Tetanus Immunization Tetanus Immunization: Unknown - Past Medical History Past Medical History: No Previous - Cardiac Hx Pacemaker: No - Pulmonary Hx Respiratory Disorders: No - Neurological Hx Paralysis: No - HEENT Hx HEENT Disorder: No - Renal Hx Renal Disorder: No - Endocrine/Metabolic Hx Endocrine Disorders: No - Hematological/Oncological Hx Blood Transfusions: No Hx Blood Transfusion Reaction: No - Integumentary Hx Dermatological Disorder: No - Musculoskeletal/Rheumatological Hx Musculoskeletal Disorders: No - Gastrointestinal Hx Gastrointestinal Disorders: Yes Hx Gastroesophageal Reflux: Yes Other/Comment: HIATAL HERNIA - Genitourinary/Gynecological Hx Genitourinary Disorders: Yes Hx Urinary Tract Infection: Yes Other/Comment: endometriosis - Psychiatric Hx Emotional Abuse: No Hx Physical Abuse: No Hx Substance Use: No - Past Surgical History Past Surgical History: No Previous - Surgical History Other/Comment: left ovarian cyst. laproscopy. liver biopsy - Anesthesia Hx Anesthesia: Yes Hx Anesthesia Reactions: No Hx Malignant Hyperthermia: No - Suicidal Assessment Feels Threatened In Home Enviroment: No Family/Social History - Physician Review Nursing Documentation Reviewed: Yes Family/Social History: No Known Family HX Smoking Status: Never Smoked Hx Alcohol Use: Yes (SOCIAL) Hx Substance Use: No Hx Substance Use Treatment: No Allergies/Home Meds Allergies/Adverse Reactions: Allergies No Known Allergies Allergy (Verified 02/06/19 04:43) Review of Systems - Physician Review All systems were reviewed & negative as marked: Yes - Review of Systems Constitutional: absent: Fevers, Night Sweats Respiratory: absent: SOB, Cough Cardiovascular: absent: Chest Pain Gastrointestinal: Abdominal Pain, Nausea. absent: Vomiting Musculoskeletal: absent: Back Pain, Neck Pain Neurological: absent: Headache, Dizziness Physical Exam - Physical Exam Narrative Physical Exam (Text): 02/06/19 05:06 Gen: VS reviewed, alert, well developed, well nourished, nontoxic, mild distress Eye: EOMI, PERRL ENT: normal pharynx. Neck: no JVD, supple, no adenopathy CV: regular rate, regular rhythm, no rubs,no murmur, S1, S2 Pulm: no distress, clear to auscultation, no wheeze, no rhonchi, breath sounds equal, no rales Abd: mild to moderate tenderness in the mid upper abdomen, some guarding, no rebound, no rigidity Ext: no edema Skin: good color, no rash, no cyanosis Psych: responds appropriately to questions, normal affect Neuro: oriented x3, CN2-12 intact grossly, motor intact, sensation intact 02/06/19 06:08 Vital Signs Reviewed: Yes Vital Signs Temp Pulse Resp BP Pulse Ox 02/06/19 04:40 97.4 F L 87 16 125/47 L 98 Temperature: Afebrile Blood Pressure: Hypotensive Pulse: Regular Respiratory Rate: Normal Appearance: Positive for: Well-Appearing, Non-Toxic, Comfortable Pain Distress: None Mental Status: Positive for: Alert and Oriented X 3 Medical Decision Making ED Course and Treatment: 02/06/19 05:08 Impression: 34 year old female presents with abdominal pain and nausea. Plan: -- CT ABD & Pelvis -- EKG -- CMP, Lipase -- CBC -- Zofran -- POC Urine -- Urinalysis -- Reassess and disposition Prior Visits: Notes and results from previous visits were reviewed. 02/06/19 05:39 patient seen for nausea and abdominal pain after her large dog jumped on her stomach. Will check labs for comparison of previous abnormal numbers. Will get CT, rule out traumatic injury vs bowel obstruction vs other. 02/06/19 07:[address] ortega, aroldo CT and final disposition. - Lab Interpretations Narrative Lab Interpretation (Text): 02/06/19 06:07 cbc unremarkable lipase normal ua unremarkable cmp mildly elevated LFT's and improved from previously seen abnormal numbers I have reviewed the lab results: Yes - EKG Interpretation EKG Interpretation (Text): 02/06/19 05:39 ekg my read: nsr at 66 bpm, nml qrs, nml axis, no ac [place] ab[facility] Interpreted by ED Physician: Yes - Medication Orders Current Medication Orders: Ondansetron HCl (Zofran Inj) 4 mg IVP STAT STA Stop: 02/06/19 05:01 - Scribe Statement The provider has reviewed the documentation as recorded by the Scribe Luis De All medical record entries made by the Scribe were at my direction and per sonally dictated by me. I have reviewed the chart and agree that the record accurately reflects my personal performance of the history, physical exam, medical decision making, and the department course for this patient. I have also personally directed, reviewed, and agree with the discharge instructions and disposition. Disposition/Present on Arrival - Present on Arrival Any Indicators Present on Arrival: No History of DVT/PE: No History of Uncontrolled Diabetes: No Urinary Catheter: No History of Decub. Ulcer: No History Surgical Site Infection Following: None - Disposition Have Diagnosis and Disposition been Completed?: Yes Diagnosis: Abdominal pain Forms: [employer] (Eth[place]ian)
[2019-02-06 05:23] LABS: URINE BILIRUBIN NEGATIVE (NEGATIVE); URINE BLOOD NEGATIVE (NEGATIVE); URINE GLUCOSE (UA) NEGATIVE (NEGATIVE); URINE LEUKOCYTE ESTERASE SMALL Leu/uL (NEGATIVE); URINE PROTEIN 30 mg/dL (<30 mg/dL); URINE UROBILINOGEN 0.2 E.U./dL (<1 E.U./dL)
[2019-02-06 05:24] LABS: BASO # 0.03 K/mm3 (0.0-2.0); BASO % 0.3 % (0.0-3.0); EOS # 0.3 (0.0-0.7); EOS % 2.2 % (1.5-5.0); HEMOGLOBIN 13.2 g/dL (12.0-16.0); LYMPH # 2.5 (1.2-3.4); LYMPH % 21.3 % (22.0-35.0); MEAN CORPUSCULAR HEMOGLOBIN 32.4 pg (25.0-35.0); MEAN CORPUSCULAR HGB CONC 34.3 g/dl (31.0-37.0); MEAN PLATELET VOLUME 9.4 fl (7.0-11.0); MONO # 0.7 (0.1-0.6); RBC 4.08 10^6/uL (3.5-6.1); WHITE BLOOD COUNT 11.8 10^3/uL (4.5-11.0)
[2019-02-06 05:26] LABS: URINE APPEARANCE CLEAR (CLEAR); URINE COLOR YELLOW (YELLOW)
[2019-02-06 05:27] LABS: MEAN CELL VOLUME 94.4 fl (80.0-105.0)
[2019-02-06 05:43] LABS: URINE BACTERIA SMALL /hpf
[2019-02-06 05:58] LABS: ALB/GLOB RATIO 0.9 (1.1-1.8); ALBUMIN 3.5 g/dL (3.0-4.8); ALT/SGPT 346 U/L (7-56); AST/SGOT 166 U/L (14-36); BLOOD UREA NITROGEN 14 mg/dL (7-21); CALCIUM 8.9 mg/dL (8.4-10.5); GFR NON-AFRICAN AMERICAN > 60; LIPASE 53 U/L (23-300)
[2019-02-06] MEDS ORDERED: Iohexol 350 MG/100 ML VIAL ONE (06:13)
[2019-02-06 06:31] VITALS: O2SAT 99
--- NOTE | 2019-02-06 06:55 | ED PDOC ---
Physical Exam Vital Signs Temp Pulse Resp BP Pulse Ox 02/06/19 06:31 86 16 144/85 99 02/06/19 04:40 97.4 F L 87 16 125/47 L 98 <MillerBon - Last Filed: 02/06/19 07:23> Vital Signs Temp Pulse Resp BP Pulse Ox 02/06/19 06:31 86 16 144/85 99 02/06/19 04:40 97.4 F L 87 16 125/47 L 98 <Chon Roper - Last Filed: 02/06/19 07:33> Medical Decision Making - Lab Interpretations Lab Results: Total Bilirubin 0.4 mg/dL (0.2-1.3) 02/06/19 05:00 AST 166 U/L (14-36) H D 02/06/19 05:00 ALT 346 U/L (7-56) H 02/06/19 05:00 Alkaline Phosphatase 120 U/L (38-126) 02/06/19 05:00 Total Protein 7.4 g/dL (5.8-8.3) 02/06/19 05:00 Albumin 3.5 g/dL (3.0-4.8) 02/06/19 05:00 Globulin 3.9 gm/dL 02/06/19 05:00 Albumin/Globulin Ratio 0.9 (1.1-1.8) L 02/06/19 05:00 Lipase 53 U/L (23-300) 02/06/19 05:00 Urine Color Yellow (YELLOW) 02/06/19 05:01 Urine Appearance Clear (CLEAR) 02/06/19 05:01 Urine pH 6.0 (4.7-8.0) 02/06/19 05:01 Ur Specific [place] 1.025 (1.005-1.035) 02/06/19 05:01 Urine Protein 30 mg/dL (<30 mg/dL) H 02/06/19 05:01 Urine Glucose (UA) Negative mg/dL (NEGATIVE) 02/06/19 05:01 Urine Ketones Negative mg/dL (NEGATIVE) 02/06/19 05:01 Urine Blood Negative (NEGATIVE) 02/06/19 05:01 Urine Nitrate Negative (NEGATIVE) 02/06/19 05:01 Urine Bilirubin Negative (NEGATIVE) 02/06/19 05:01 Urine Urobilinogen 0.2 E.U./dL (<1 E.U./dL) 02/06/19 05:01 Ur Leukocyte Esterase Small Amparo/uL (NEGATIVE) H 02/06/19 05:01 Urine RBC 1 - 3 /hpf (0-2) H 02/06/19 05:01 Urine WBC 1 - 3 /hpf (0-6) 02/06/19 05:01 Ur Epithelial Cells 1 - 3 /hpf (0-5) 02/06/19 05:01 Urine Bacteria Small /hpf (NONE) 02/06/19 05:01 - RAD Interpretation Narrative RAD Interpretations (Text): 02/06/19 07:24 Abdomen/Pelvis CT: IMPRESSION: Unremarkable intrauterine device. No evidence of acute abdominal or pelvic pathology. Radiology Orders: 02/06/19 05:01 ABDOMEN & PELVIS [ABD & PELVIS IV CONTRAST ONLY] [CT] Stat - Medication Orders Current Medication Orders: Discontinued Medications Ondansetron HCl (Zofran Inj) 4 mg IVP STAT STA Stop: 02/06/19 05:01 Last Admin: 02/06/19 05:10 Dose: 4 mg IVP Administration Document 02/06/19 05:10 KV (Rec: 02/06/19 05:21 KV [id number]) Charges for Administration # of IVP Administrations 1 <Bon Bhatt - Last Filed: 02/06/19 07:23> ED Course and Treatment: 02/06/19 06:[address] Bhatt with patient pending CT a/p results 02/06/19 07:30 CT a/p reveals no acute intra-abdominal pathology. UA reveals bacteria in which patient states she is already receiving antibiotics for. She is encouraged to follow up with Dr. Campbell(PCP). She demonstrates understanding of the plan for discharge and will follow up. She is stable for discharge. - Lab Interpretations Lab Results: Total Bilirubin 0.4 mg/dL (0.2-1.3) 02/06/19 05:00 AST 166 U/L (14-36) H D 02/06/19 05:00 ALT 346 U/L (7-56) H 02/06/19 05:00 Alkaline Phosphatase 120 U/L (38-126) 02/06/19 05:00 Total Protein 7.4 g/dL (5.8-8.3) 02/06/19 05:00 Albumin 3.5 g/dL (3.0-4.8) 02/06/19 05:00 Globulin 3.9 gm/dL 02/06/19 05:00 Albumin/Globulin Ratio 0.9 (1.1-1.8) L 02/06/19 05:00 Lipase 53 U/L (23-300) 02/06/19 05:00 Urine Color Yellow (YELLOW) 02/06/19 05:01 Urine Appearance Clear (CLEAR) 02/06/19 05:01 Urine pH 6.0 (4.7-8.0) 02/06/19 05:01 Ur Specific [place] 1.025 (1.005-1.035) 02/06/19 05:01 Urine Protein 30 mg/dL (<30 mg/dL) H 02/06/19 05:01 Urine Glucose (UA) Negative mg/dL (NEGATIVE) 02/06/19 05:01 Urine Ketones Negative mg/dL (NEGATIVE) 02/06/19 05:01 Urine Blood Negative (NEGATIVE) 02/06/19 05:01 Urine Nitrate Negative (NEGATIVE) 02/06/19 05:01 Urine Bilirubin Negative (NEGATIVE) 02/06/19 05:01 Urine Urobilinogen 0.2 E.U./dL (<1 E.U./dL) 02/06/19 05:01 Ur Leukocyte Esterase Small Amparo/uL (NEGATIVE) H 02/06/19 05:01 Urine RBC 1 - 3 /hpf (0-2) H 02/06/19 05:01 Urine WBC 1 - 3 /hpf (0-6) 02/06/19 05:01 Ur Epithelial Cells 1 - 3 /hpf (0-5) 02/06/19 05:01 Urine Bacteria Small /hpf (NONE) 02/06/19 05:01 - RAD Interpretation Radiology Orders: 02/06/19 05:01 ABDOMEN & PELVIS [ABD & PELVIS IV CONTRAST ONLY] [CT] Stat - Medication Orders Current Medication Orders: Discontinued Medications Ondansetron HCl (Zofran Inj) 4 mg IVP STAT STA Stop: 02/06/19 05:01 Last Admin: 02/06/19 05:10 Dose: 4 mg IVP Administration Document 02/06/19 05:10 KV (Rec: 02/06/19 05:21 KV [id number]) Charges for Administration # of IVP Administrations 1 <RcfabriziojennyChon - Last Filed: 02/06/19 07:33> Disposition/Present on Arrival <Bon Bhatt - Last Filed: 02/06/19 07:23> - Present on Arrival Any Indicators Present on Arrival: No History of DVT/PE: No History of Uncontrolled Diabetes: No Urinary Catheter: No History of Decub. Ulcer: No History Surgical Site Infection Following: None - Disposition Have Diagnosis and Disposition been Completed?: Yes Disposition Time: 07:32 Patient Plan: Discharge <RcfabrizioChon alvarado - Last Filed: 02/06/19 07:33> - Disposition Diagnosis: Abdominal pain, UTI (urinary tract infection) Disposition: HOME/ ROUTINE Patient Problems: Current Active Problems Problem Status Onset Abdominal pain Acute Condition: STABLE Discharge Instructions (ExitCare): Acute Abdomen (Belly Pain), Adult (DC), Nausea and Vomiting, Adult (DC) Print Language: ESTONIAN Additional Instructions: Please follow up with your PCP in 3-5 days Referrals: Augie Campbell MD [Family Provider] - Follow up with primary Forms: [facility] ([place]an), WORK NOTE
[2019-02-06 07:47] VITALS: BP 135/82; PULSE 82
--- NOTE | 2019-02-06 09:12 | CT ---
Date of service: 02/06/2019 PROCEDURE: CT Abdomen and Pelvis with contrast HISTORY: upper abdominal pain COMPARISON: Abdominal ultrasound performed 06/02/18 TECHNIQUE: Contrast dose: 100 mL Omnipaque 350 IV Radiation dose: Total exam DLP = 550.1 mGy-cm. This CT exam was performed using one or more of the following dose reduction techniques: Automated exposure control, adjustment of the mA and/or kV according to patient size, and/or use of iterative reconstruction technique. FINDINGS: LOWER THORAX: No visible consolidation, pleural effusion, or pneumothorax. LIVER: Unremarkable. GALLBLADDER AND BILE DUCTS: Unremarkable. PANCREAS: Unremarkable. SPLEEN: Unremarkable. ADRENALS: Unremarkable. KIDNEYS AND URETERS: The kidneys enhance symmetrically. No hydronephrosis or obstructing calculus identified. VASCULATURE: No aortic aneurysm. No atherosclerotic calcification or mural plaque present. BOWEL: Stomach is nondistended. Lack of oral contrast limits evaluation for bowel pathology. Bowel loops appear within normal limits of caliber without evidence of obstruction. APPENDIX: No secondary signs of acute appendicitis. PERITONEUM: No significant free fluid. No definite free air. LYMPH NODES: No bulky adenopathy identified. BLADDER: Unremarkable. REPRODUCTIVE: The uterus is present. IUD identified. Probable small bilateral ovarian cysts. BONES: No acute osseous abnormality is detected. OTHER FINDINGS: None. IMPRESSION: IUD present. Probable small bilateral ovarian cysts. No acute abdominal or pelvic pathology identified. Preliminary impression was provided by [facility] [facility].
--- NOTE | 2019-02-06 09:21 | CARD ---
APPROVED REPORT Date of service: 02/06/2019 EKG Measurement Heart [id number] <Conclusion> Normal sinus rhythm Normal ECG
== END 2019-02-06 07:45 | disposition home or self-care (01) ==
LOC: ED 04:39
DX: N39.0 Urinary tract infection, site not specified (principal); R10.9 Unspecified abdominal pain
CPT/HCPCS: 74177; 80053; 81001; 81025; 83690; 85025; 87086; 93005; 96374; 99284; J2405; Q9967